=== PATIENT | male | born 1955 | race Caucasian/White ===

== ENCOUNTER 2017-02-19 14:37 | Emergency (ER) | payer OTHER ==
[2017-02-19] MEDS ORDERED: RX INFO: IV CONTRAST WAS GIVEN 1 EACH MISC MISCELLANE PRN (15:00)
--- NOTE | 2017-02-19 15:02 | ED ---
General Adult HPI - General Chief complaint: Fall Stated complaint: [facility]/fall/Back Pain Time Seen by Provider: 02/19/17 14:50 Source: patient, RN notes reviewed Mode of arrival: ambulatory Limitations: no limitations - History of Present Illness Initial comments: 61-year-old male presenting after fall at work. Patient states he was standing on a stool in front of a machine when he lost balance and fell backwards. He states he fell backwards falling onto his right lower back as well as hitting his right elbow. He does not believe that he hit his head or neck. He did not lose consciousness. He is not any blood thinner medications. He states since this time he has developed right lower back pain that is worsening. He also states right elbow hurts. He denies any other injury. He denies any significant medical history. - Related Data Home Medications Medication Instructions Recorded Confirmed Clotrimazole/Betameth Cream 1 applic TOPICAL DAILY PRN 02/19/17 02/19/17 [Lotrisone] Ibuprofen [Motrin] 800 mg PO DAILY PRN 02/19/17 02/19/17 Previous Rx's Medication Instructions Recorded HYDROcodone/APAP 5-325MG [Belding 1 tab PO Q6HR PRN #12 tab 02/19/17 5-325] Ibuprofen [Motrin] 800 mg PO Q8HR PRN #21 tab 02/19/17 Allergies Allergy/AdvReac Type Severity Reaction Status Date / Time bacitracin AdvReac Unknown Verified 02/19/17 16:00 [From Neosporin ([id number])] neomycin AdvReac Unknown Verified 02/19/17 16:00 [From Neosporin ([id number])] polymyxin B AdvReac Unknown Verified 02/19/17 16:00 [From Neosporin ([id number])] Review of Systems ROS Statement: Those systems with pertinent positive or pertinent negative responses have been documented in the HPI. ROS Other: All systems not noted in ROS Statement are negative. Past Medical History Past Medical History: No Reported History History of Any Multi-Drug Resistant Organisms: None Reported Additional Past Surgical History / Comment(s): left hand surgery Past Psychological History: No Psychological Hx Reported Smoking Status: Never smoker Past Alcohol Use History: Occasional Past Drug Use History: None Reported General Exam - General Exam Comments Initial Comments: General: Awake and Alert. No acute distress. Does not appear acutely ill. Eyes: STEVE, EOM intact. No nystagmus. No scleral icterus. HENT: Atraumatic, normocephalic. Mucous membranes moist. Trachea midline. No hemotympanum. Neck: The neck is supple, there is no tenderness or JVD. Cardiovascular: Regular rate and rhythm. No murmur, rub, or gallop is appreciated. Distal pulses intact. Respiratory: Lungs are clear to auscultation bilaterally. No wheezes, rales, rhonchi. No respiratory distress. Gastrointestinal: Soft, Nontender. No rebound or guarding. Non-distended. No masses or organomegaly noted. No CVA tenderness. Musculoskeletal: Right lower back tenderness. There is significant ecchymosis of the right lower back, with a swollen area which feels like an underlying hematoma. No midline spinal tenderness or deformity. Mild tenderness over medial elbow. Neurological: A&Ox3. CN II-XII grossly intact, There are no obvious motor or sensory deficits. Coordination appears grossly intact. Speech is normal. Skin: Skin is warm and dry and no rashes or lesions are noted. Psychiatric: Cooperative, appropriate mood & affect, normal judgment. Limitations: no limitations Course Vital Signs 02/19/17 02/19/17 02/19/17 14:41 15:48 17:10 Temperature 97.5 F L 98.2 F Pulse Rate 75 71 65 Respiratory 18 16 18 Rate Blood Pressure 123/82 131/63 128/67 O2 Sat by Pulse 97 98 98 Oximetry Medical Decision Making - Medical Decision Making 61-year-old male presenting after fall at work. He does have evidence of ecchymosis and hematoma on the right lower back. Due to this basic blood work and CT imaging were performed. CT abdomen/pelvis without evidence of acute process. He does have noted chronic spondylitic changes at L5-S1. Elbow x-ray is without fracture. Labs with stable CBC with mild leukocytosis, likely reactive. BMP stable. Pt updated on imaging. Discussed spondylitic changes and follow up for this. Work note provided, discussed further time off per [facility] or PCP reevaluation. Otherwise stable for discharge home. Rx for pain medication provided. Discussed concerning signs/symptoms for immediate return to the ED. Patient is agreeable with plan and discharge home. - Lab Data Result diagrams: 04/07/17 15:15 02/19/17 15:15 Lab Results 02/19/17 02/19/17 Range/Units 15:15 15:15 WBC 11.6 H (3.8-10.6) k/uL RBC 4.94 (4.30-5.90) m/uL Hgb 15.9 (13.0-17.5) gm/dL Hct 46.5 (39.0-53.0) % MCV 94.0 (80.0-100.0) fL MCH 32.2 (25.0-35.0) pg MCHC 34.2 (31.0-37.0) g/dL RDW 12.7 (11.5-15.5) % Plt Count 248 (150-450) k/uL Neutrophils % 72 % Lymphocytes % 20 % Monocytes % 5 % Eosinophils % 1 % Basophils % 1 % Neutrophils # 8.3 H (1.3-7.7) k/uL Lymphocytes # 2.4 (1.0-4.8) k/uL Monocytes # 0.6 (0-1.0) k/uL Eosinophils # 0.1 (0-0.7) k/uL Basophils # 0.1 (0-0.2) k/uL Sodium 139 (137-145) mmol/L Potassium 4.6 (3.5-5.1) mmol/L Chloride 105 (98-107) mmol/L Carbon Dioxide 24 (22-30) mmol/L Anion Gap 10 mmol/L BUN 17 (9-20) mg/dL Creatinine 1.03 (0.66-1.25) mg/dL Est GFR (MDRD) Af Amer >60 (>60 ml/min/1.73 sqM) Est GFR (MDRD) Non-Af >60 (>60 ml/min/1.73 sqM) Glucose 87 (74-99) mg/dL Calcium 9.3 (8.4-10.2) mg/dL - Radiology Data Radiology results: report reviewed, image reviewed Disposition Clinical Impression: Fall, Right low back pain, Traumatic hematoma of lower back Disposition: HOME SELF-CARE Condition: Stable Instructions: Low Back Strain (ED), Hematoma (ED) Prescriptions: HYDROcodone/APAP 5-325MG [Belding 5-325] 1 tab PO Q6HR PRN #12 tab PRN Reason: Pain Ibuprofen [Motrin] 800 mg PO Q8HR PRN #21 tab PRN Reason: Pain Referrals: Linn Altman MD [Primary Care Provider] - 1-2 days Time of Disposition: 16:45
[2017-02-19 15:22] LABS: Basophils # (A) 0.1 k/uL (0-0.2); Basophils % (A) 1 %; CH 31.9; CHCM 34.1; Eosinophils # (A) 0.1 k/uL (0-0.7); Eosinophils % (A) 1 %; HCT 46.5 % (39.0-53.0); HDW 2.33; HGB 15.9 gm/dL (13.0-17.5); Luc # (Auto) 0.22; Luc % (Auto) 2; Lymphocytes # (A) 2.4 k/uL (1.0-4.8); Lymphocytes % (A) 20 %; MCH 32.2 pg (25.0-35.0); MCHC 34.2 g/dL (31.0-37.0); Mean Platelet Volume 6.8; Monocytes # (A) 0.6 k/uL (0-1.0); Monocytes % (A) 5 %; Neutrophils # (A) 8.3 k/uL (1.3-7.7); Neutrophils % (A) 72 %; RBC 4.94 m/uL (4.30-5.90); RDW 12.7 % (11.5-15.5); WBC 11.6 k/uL (3.8-10.6); WBC (Perox) 11.61
[2017-02-19 15:45] LABS: Anion Gap 10 mmol/L; Blood Urea Nitrogen 17 mg/dL (9-20); Calcium 9.3 mg/dL (8.4-10.2); Carbon Dioxide 24 mmol/L (22-30); Chloride 105 mmol/L (98-107); Glucose 87 mg/dL (74-99); Non-African American GFR(MDRD) >60 (>60 ml/min/1.73 sqM); Potassium 4.6 mmol/L (3.5-5.1); Sodium 139 mmol/L (137-145)
--- NOTE | 2017-02-19 15:50 | CT ---
EXAMINATION TYPE: CT abdomen pelvis w con DATE OF EXAM: 02/19/2017 3:43 PM COMPARISON: NONE HISTORY: Patient fell today and complains of right lower back pain. Patient denies any other abdomin al/pelvic complaint. CT DLP: 567 mGycm, Automated Exposure Control for Dose Reduction was Utilized. CONTRAST: CT scan of the abdomen and pelvis is performed without oral but with IV Contrast, patient injected wi th 100 mL of Omnipaque 300. FINDINGS: LUNG BASES: No significant abnormality is appreciated. LIVER/GB: No significant abnormality is appreciated. PANCREAS: No significant abnormality is seen. SPLEEN: No significant abnormality is seen. ADRENALS: No significant abnormality is seen. KIDNEYS: No significant abnormality is seen. BOWEL: Evaluation of bowel is suboptimal due to lack of enteric contrast. There is no suspicious smal l or large bowel dilatation seen. Normal-appearing appendix is seen inferiorly from the cecum. There are some diverticula seen in the proximal sigmoid colon. There is no convincing CT evidence for acute diverticulitis. PROSTATE/SEMINAL VESICLES: Some central zone calcifications are seen in normal size prostate gland. L YMPH NODES: No greater than 1cm abdominal or pelvic lymph nodes are appreciated. OSSEOUS STRUCTURES: There are bilateral pars defects L5 level. There is grade 1 anterolisthesis of L5 on S1 measuring 8 mm on sagittal images. There is moderate to advanced disc space narrowing with vac uum disc phenomenon at lumbosacral junction. OTHER: Few scattered pelvic phleboliths are present. There is small fat-containing right inguinal her sujit. IMPRESSION: Bilateral pars defects L5 level with grade 1 anterolisthesis of L5 on S1 and degenerative change lumbosacral junction noted. All findings presumed chronic. No acute posttraumatic finding is clearly seen.
--- NOTE | 2017-02-19 16:21 | XR ---
EXAMINATION TYPE: XR elbow complete RT DATE OF EXAM: 02/19/2017 4:14 PM CLINICAL HISTORY: Posterior right elbow pain after fall injury today. TECHNIQUE: Frontal, lateral and oblique images of the right elbow are obtained. COMPARISON: None FINDINGS: There is no acute fracture/dislocation evident in the right elbow. No abnormal fat pad si gns are seen. The overlying soft tissue appears unremarkable. IMPRESSION: There is no acute fracture or dislocation in the right elbow.
[2017-02-19 17:11] VITALS: BP 128/67; PULSE 65; RESP 18; TEMP 98.2
== END 2017-02-19 17:11 | disposition home or self-care (01) ==
LOC: EC 14:37
DX: S30.0XXA Contusion of lower back and pelvis, initial encounter (principal); M25.521 Pain in right elbow; M47.817 Spondylosis without myelopathy or radiculopathy, lumbosacral region; Z88.1 Allergy status to other antibiotic agents; W08.XXXA Fall from other furniture, initial encounter; Y99.0 Civilian activity done for income or pay; Y92.69 Other specified industrial and construction area as the place of occurrence of the external cause; D72.829 Elevated white blood cell count, unspecified
CPT/HCPCS: 99284 ×2; 36415; 80048; 85025; 73080; 74177; Q9967

== ENCOUNTER 2017-03-04 04:01 | Emergency (ER) | payer OTHER ==
[2017-03-04 04:12] VITALS: BP 127/90; PULSE 76; RESP 16; TEMP 98.1
--- NOTE | 2017-03-04 04:40 | ED ---
Back Pain HPI - General Chief Complaint: Back Pain/Injury Stated Complaint: [facility] follow up-back/arm pain Time Seen by Provider: 03/04/17 04:34 Source: patient, RN notes reviewed, old records reviewed Limitations: no limitations - History of Present Illness Initial Comments: Is a 61-year-old male who is here for evaluation for back pain. He was apparently injured on the of this month from a fall he was seen here in the emergency Department on that date he did have x-rays as well as a CAT scan the abdomen pelvis done. X-rays available was unremarkable CT showed evidence of a bilateral pars defect of the L5 level with grade 1 anterolisthesis of L5 on S1 and degenerative changes lumbosacral junction noted a period be chronic changes not acute. He denies any fevers chills nausea vomiting sweats dysuria hematuria and urinary or fecal incontinence. 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 [facility] was [facility] where he was evaluated for low back pain he was seen in the of this month and told that he should be able to resume full duty. He is also concerned because he has difficulty with sleeping on his back and hurts and is not getting enough sleep states. He also did have a letter from his employer saying he could not see his own personal physician for this injury but had to go to the medical provider chosen by his company. The patient states he was on Motrin 800 mg also was Farnam. He states he's run out of his medication. Complaint: back injury, fall - Related Data Home Medications Medication Instructions Recorded Confirmed Clotrimazole/Betameth Cream 1 applic TOPICAL DAILY PRN 02/19/17 02/19/17 [Lotrisone] Ibuprofen [Motrin] 800 mg PO DAILY PRN 02/19/17 02/19/17 Previous Rx's Medication Instructions Recorded HYDROcodone/APAP 5-325MG [[place]arnam 1 tab PO Q6HR PRN #12 tab 02/19/17 5-325] Ibuprofen [Motrin] 800 mg PO Q8HR PRN #21 tab 02/19/17 Ibuprofen [Motrin] 800 mg PO Q6HR PRN #20 tab 04/20/17 Allergies Allergy/AdvReac Type Severity Reaction Status Date / Time bacitracin AdvReac Unknown Verified 02/19/17 16:00 [From Neosporin ([id number])] neomycin AdvReac Unknown Verified 02/19/17 16:00 [From Neosporin ([id number])] polymyxin B AdvReac Unknown Verified 02/19/17 16:00 [From Neosporin ([id number])] Review of Systems ROS Statement: Those systems with pertinent positive or pertinent negative responses have been documented in the HPI. ROS Other: All systems not noted in ROS Statement are negative. Past Medical History Past Medical History: No Reported History History of Any Multi-Drug Resistant Organisms: None Reported Additional Past Surgical History / Comment(s): left hand surgery Past Psychological History: Anxiety Smoking Status: Never smoker Past Alcohol Use History: Occasional Past Drug Use History: None Reported General Exam - General Exam Comments Initial Comments: This is a well-developed well-nourished awake alert oriented x3 male Limitations: no limitations General appearance: alert, in no apparent distress Head exam: Present: atraumatic, normocephalic, normal inspection Eye exam: Present: normal appearance, PERRL, EOMI. Absent: scleral icterus, conjunctival injection, periorbital swelling Neck exam: Present: normal inspection. Absent: tenderness, meningismus, lymphadenopathy Respiratory exam: Present: normal lung sounds bilaterally. Absent: respiratory distress, wheezes, rales, rhonchi, stridor Cardiovascular Exam: Present: regular rate, normal rhythm, normal heart sounds. Absent: systolic murmur, diastolic murmur, rubs, gallop, clicks Extremities exam: Present: normal inspection, full ROM, normal capillary refill. Absent: tenderness, pedal edema, joint swelling, calf tenderness Back exam: Present: tenderness, paraspinal tenderness (Tenderness with some paraspinous tenderness palpation to the right paraspinous muscles to lower lumbar and SI joint region there is resolving ecchymosis seen over the sacrum and the left SI region. There is tenderness palpation with no step-off or crepitation. There is some sciatic tenderness. No focal deficits noted) Neurological exam: Present: alert, oriented X3, CN II-XII intact Psychiatric exam: Present: normal affect, normal mood Skin exam: Present: warm, dry, intact, other (Ecchymosis is noted above). Absent: normal color Course Vital Signs 03/04/17 04:09 Temperature 98.1 F Pulse Rate 76 Respiratory 16 Rate Blood Pressure 127/90 O2 Sat by Pulse 96 Oximetry Medical Decision Making - Medical Decision Making After review the records and also examination the patient and believe a another week of light duty is indicated. Patient will be instructed to resume Motrin 800 mg. Warm compresses to the area and lifting restrictions Disposition Clinical Impression: Mechanical back pain, Strain of lumbar region, Lumbar contusion Disposition: HOME SELF-CARE Condition: Good Instructions: Acute Low Back Pain (ED), Low Back Strain (ED), Lower Back Exercises (ED), Contusion in Adults (ED) Additional Instructions: Apply warm compresses as needed to the affected area Prescriptions: Ibuprofen [Motrin] 800 mg PO Q6HR PRN #20 tab PRN Reason: Pain
== END 2017-03-04 04:53 | disposition home or self-care (01) ==
LOC: EC 04:01
DX: S39.012A Strain of muscle, fascia and tendon of lower back, initial encounter (principal); Z88.1 Allergy status to other antibiotic agents; X50.0XXA Overexertion from strenuous movement or load, initial encounter; Y92.69 Other specified industrial and construction area as the place of occurrence of the external cause; Y99.0 Civilian activity done for income or pay
CPT/HCPCS: 99283

== ENCOUNTER → 2020-12-19 | Outpatient (CLI) | payer OTHER ==
[2020-12-19 19:28] LABS: Basophils % (A) 1.1 %; Eosinophils # (A) 0.28 X 10*3/uL (0.04-0.35); Eosinophils % (A) 3.2 %; HCT 46.2 % (39.6-50.0); HGB 15.2 g/dL (13.0-17.0); Lymphocytes # (A) 2.93 X 10*3/uL (0.90-5.00); Lymphocytes % (A) 33.6 %; MCH 31.2 pg (27.0-32.0); MCHC 32.9 g/dL (32.0-37.0); MCV 94.9 fL (80.0-97.0); Mean Platelet Volume 10.5 fL (9.5-12.2); Monocytes # (A) 0.98 X 10*3/uL (0.20-1.00); Monocytes % (A) 11.2 %; Neutrophils # (A) 4.42 X 10*3/uL (1.80-7.70); Neutrophils % (A) 50.7 %; Platelet Count 287 X 10*3/uL (140-440); RBC 4.87 X 10*6/uL (4.40-5.60); RDW 13.1 % (11.5-14.5); WBC 8.73 X 10*3/uL (4.50-10.00)
[2020-12-19 20:36] LABS: Erythrocyte Sedimentation Rate 14 mm/Hr (0-20)
[2020-12-19 21:57] LABS: Anti-Smith Ab Interp NEGATIVE (NEGATIVE)
[2020-12-19 23:40] LABS: African American GFR (CKD) 67.3 (60.0-200.0); Albumin 4.1 g/dL (3.80-4.90); Albumin/Globulin Ratio 1.52 (1.60-3.17); Anion Gap 8.8 mmol/L (4.00-12.00); BUN/Creat Ratio 17.69 Ratio (12.00-20.00); Calcium 8.7 mg/dL (8.7-10.3); Carbon Dioxide 25.2 mmol/L (21.6-31.8); Globulin 2.7 g/dL (1.6-3.3); Non-African American GFR(CKD) 58.1 (60.0-200.0); Potassium 4.5 mmol/L (3.5-5.5); Total Bilirubin 0.4 mg/dL (0.3-1.2); Total Protein 6.8 g/dL (6.2-8.2)
[2020-12-20 16:06] LABS: ANA Pattern Speckled
== END | disposition home or self-care (01) ==
LOC: LABWHC1 14:16
PROVIDERS: ATTEND Internal Medicine Critical Care Medicine
DX: J84.112 Idiopathic pulmonary fibrosis (principal); R05 Cough
CPT/HCPCS: 36415; 80053; 85025; 85652; 86038; 86039; 86235; 86431

== ENCOUNTER → 2021-01-01 | Outpatient (CLI) | payer OTHER ==
--- NOTE | 2021-01-01 21:53 | CT ---
EXAMINATION TYPE: CT chest wo con DATE OF EXAM: 01/01/2021 COMPARISON: CT abdomen pelvis 02/19/2017 HISTORY: Cough x [address] DLP: 295.6 mGycm, Automated exposure control for dose reduction was used. CONTRAST: None TECHNIQUE: Axial images were obtained at 5 mm thick sections. Reconstructed images are reviewed on [employer] computer in the coronal plane. FINDINGS: Portion of the thyroid visualized is normal. There are a few scattered peripheral infiltrates greater along the right peripheral lower lobe. Findi ngs are nonspecific. Discrete nodules are not identified. Finding is an interval finding from the vis ualized lung base in 2017. There is a 1.3 cm enlarged right peribronchial lymph node. Series 3 image 27. No suspicious hilar maximilian nopathy is evident. There are scattered small lymph nodes within the mediastinum. The ascending aorta diameter at the level of the main pulmonary artery is 2.9 cm. The main pulmonary artery diameter at the bifurcation is 2.[address] sections are obtained through the upper abdomen. Abdomen is essentially unremarkable. IMPRESSIONS: 1. Peripheral based infiltrates greater at the right mid and lower lung salcido, nonspecific. Small ri ght pleural effusion is present. 2. Enlarged pretracheal lymph node with additional shotty lymphadenopathy.
== END | disposition home or self-care (01) ==
LOC: RADCTMAIN 13:01
PROVIDERS: ATTEND Internal Medicine Critical Care Medicine
DX: R91.8 Other nonspecific abnormal finding of lung field (principal); J90 Pleural effusion, not elsewhere classified; R59.1 Generalized enlarged lymph nodes
CPT/HCPCS: 71250

== ENCOUNTER → 2021-02-10 | Outpatient (CLI) | payer OTHER | END | disposition home or self-care (01) | LOC: LABWHC1 13:06 | PROVIDERS: ATTEND Thoracic Surgery (Cardiothoracic Vascular Surgery) | DX: Z20.822 Contact with and (suspected) exposure to COVID-19 (principal); Z86.16 Personal history of COVID-19 | CPT/HCPCS: U0003; C9803; U0005 ==

== ENCOUNTER → 2021-02-10 | Outpatient (CLI) | payer OTHER ==
[2021-02-10 11:56] LABS: Basophils # (A) 0.1 k/uL (0-0.2); Basophils % (A) 1 %; Eosinophils # (A) 0.2 k/uL (0-0.7); Eosinophils % (A) 2 %; HCT 48.7 % (39.0-53.0); HGB 16.4 gm/dL (13.0-17.5); Lymphocytes # (A) 2.7 k/uL (1.0-4.8); Lymphocytes % (A) 29 %; MCH 31.5 pg (25.0-35.0); MCHC 33.7 g/dL (31.0-37.0); MCV 93.3 fL (80.0-100.0); Mean Platelet Volume 6.9; Monocytes # (A) 0.7 k/uL (0-1.0); Monocytes % (A) 8 %; Neutrophils # (A) 5.3 k/uL (1.3-7.7); Neutrophils % (A) 57 %; Platelet Count 314 k/uL (150-450); RBC 5.22 m/uL (4.30-5.90); RDW 12.9 % (11.5-15.5); WBC 9.3 k/uL (3.8-10.6)
[2021-02-10 12:08] LABS: Partial Thromboplastin Time 24.5 sec (22.0-30.0); Prothrombin Time 10.6 sec (9.0-12.0)
[2021-02-10 12:13] LABS: African American GFR (CKD) >90 (>60 ml/min/1.73 sqM); Anion Gap 5 mmol/L; Blood Urea Nitrogen 16 mg/dL (9-20); Carbon Dioxide 29 mmol/L (22-30); Chloride 104 mmol/L (98-107); Glucose 96 mg/dL (74-99); Non-African American GFR(CKD) 86 (>60 ml/min/1.73 sqM); Potassium 4.9 mmol/L (3.5-5.1); Sodium 138 mmol/L (137-145)
== END | disposition home or self-care (01) ==
LOC: LABPAT 10:37
PROVIDERS: ATTEND Thoracic Surgery (Cardiothoracic Vascular Surgery)
DX: Z01.812 Encounter for preprocedural laboratory examination (principal); J84.9 Interstitial pulmonary disease, unspecified
CPT/HCPCS: 80051; 82565; 82947; 84520; 85025; 85610; 85730; 93005

== ENCOUNTER 2021-02-13 07:30 | Inpatient (IN) | payer OTHER ==
[2021-02-13 11:14] VITALS: BMI 24.4
[2021-02-20] MEDS ORDERED: HYDROmorphone 0.5 MG/0.5 ML SYRINGE IVP PRN (05:53)
[2021-02-20] MEDS ORDERED: MIDAZOLAM 2 MG/2 ML VIAL IV PRN (05:53)
[2021-02-20] MEDS ORDERED: LACTATED RINGERS 1,000 ML IV SCH (05:53)
[2021-02-20] MEDS ORDERED: DEXAMETHASONE SOD PHOSPHATE 4 MG/ML 1 ML VIAL IV ONE (05:53)
[2021-02-20] MEDS ORDERED: LIDOCAINE 1% (10MG/ML) FOR IV START INTRADERMA ONE (06:25)
[2021-02-20] MEDS ORDERED: ONDANSETRON 4 MG/2 ML VIAL ONE (06:48)
[2021-02-20] MEDS ORDERED: ROCURONIUM 10 MG/ML (5 ML VIAL) IV ONE (07:40)
[2021-02-20] MEDS ORDERED: PROPOFOL 10 MG/ML 20 ML VIAL IV ONE (07:40)
[2021-02-20] MEDS ORDERED: SUCCINYLCHOLINE CHLORIDE 100 MG/5 ML SYR IV ONE (07:40)
[2021-02-20] MEDS ORDERED: fentaNYL (PF) 50 MCG/ML 2 ML AMP ONE (07:40)
[2021-02-20] MEDS ORDERED: NEOSTIGMINE 1 MG/ML 10 ML VIAL ONE (07:40)
[2021-02-20] MEDS ORDERED: LIDOCAINE 1% INJ 10MG/ML (20 ML MDV) ONE (07:40)
[2021-02-20] MEDS ORDERED: ROPIVACAINE 5 MG/ML 30 ML VIAL ONE (07:40)
[2021-02-20] MEDS ORDERED: GLYCOPYRROLATE 0.2 MG/ML 2 ML VIAL ONE (07:40)
[2021-02-20] MEDS ORDERED: BUPIVACAINE (PF) 0.5% 30 ML VIAL SQ ONE ×3 (08:06→08:27)
--- NOTE | 2021-02-20 09:01 | P.OP ---
Date of Procedure: 02/20/21 Preoperative Diagnosis: Bilateral pulmonary interstitial infiltrates Postoperative Diagnosis: Same Procedure(s) Performed: Right thoracoscopic lung biopsy Anesthesia: GETA Surgeon: Da Alexis Estimated Blood Loss (ml): 20 IV fluids (ml): 500 Urine output (ml): 0 Pathology: other (Biopsies of right lower lobe, right upper lobe, pleura were all sent for pathology, cultures including aerobic and anaerobic AFB and fungus) Indications for Procedure: 65-year-old male with progressive dyspnea on exertion and cough. CT demonstrated bilateral interstitial disease worse on the right than the left with some trapping of the right lung. Operative Findings: There was diffuse pleural thickening and inflammatory change in the pleural space with fairly marketed somewhat persistent adhesions. These thankfully fairly easily with blunt dissection. Compliance of the pulmonary parenchyma was poor in the lung tissue was dense and boggy. Description of Procedure: The patient was brought to the operating room, placed supine on the operating room table, anesthetized and intubated with a double-lumen endotracheal tube. Tube was positioned with fiberoptic bronchoscopy and secured. Patient was turned into the left lateral decubitus position and the right chest sterilely prepped and draped. 3 one-inch incisions were made in the right chest video thoracoscope was introduced through the lowest of these. Adhesions were noted these were locally mobilized with a finger. Once a second incision had been made we were able to take down the adhesions fairly easily with one dissection using a ring forceps. Biopsies of the upper and lower lobe were obtained using multiple firings of Endo JUAN stapler. Biopsies of the pleura were also obtained. Both of the specimens were split on the back table and a portion sent for culture and the remainder for pathology. 28-Greek chest tube was placed through separate stab incision and positioned posterior apically. The lung was inflated under thoracoscopic visualization and thoracoscope removed. Incisions were closed with layers of Vicryl suture. Rib blocks were performed at the level of the incisions with half percent Marcaine posteriorly. Dry sterile dressings were applied and the patient was extubated and transferred to recovery in stable condition.
[2021-02-20] MEDS: MEPERIDINE 50 MG/ML SYRINGE IVP ONE ×2 (09:07→09:19)
[2021-02-20] MEDS ORDERED: CLOTRIMAZOLE/BETAMETH 1-0.05% CREAM 45 GM TUBE TOPICAL PRN (09:33)
[2021-02-20] MEDS ORDERED: LACTATED RINGERS 1,000 ML IV ONE (10:00)
--- NOTE | 2021-02-20 10:21 | XR ---
EXAMINATION TYPE: XR chest 1V portable DATE OF EXAM: 02/20/2021 Comparison: 12/19/2019 and 01/01/2021 Clinical History: 65-year-old male status post lung biopsy. Findings: Patient is slightly rotated towards the right. This may account for the right paratracheal soft tissu e prominence. Heart normal size. Patchy peripheral right basilar opacity is similar. Some additional fine interstitial changes in the lower lungs. Staple line right upper to midlung compatible with inte rval wedge resection. An apically directed right-sided chest tube is present. No appreciable pneumoth orax. Impression: 1. Interval wedge resection right upper to midlung with staple line now present. Right-sided chest tu be in place. No appreciable pneumothorax. 2. New right paratracheal soft tissue thickening may be projectional from slight patient rotation. Fo llow-up high-quality PA view to ensure the right paratracheal stripe is normal. 3. Chronic right basilar pleural thickening and bilateral lower lung fine interstitial changes. Possi ble interstitial pneumonitis such as NSIP.
[2021-02-20] MEDS ORDERED: KETOROLAC 15 MG/ML 1 ML VIAL IVP ONE (10:36)
[2021-02-20] MEDS ORDERED: IPRATROPIUM-ALBUTEROL 3 ML NEB IH PRN (16:43)
[2021-02-20] MEDS ORDERED: DEXTROSE 5%-0.45% NACL 1,000 ML IV SCH (16:43)
[2021-02-20] MEDS ORDERED: ONDANSETRON 4 MG/2 ML VIAL IVP PRN (16:43)
[2021-02-20] MEDS ORDERED: ACETAMINOPHEN TAB 325 MG TAB PO PRN (16:43)
[2021-02-20] MEDS: traMADol 50 MG TAB PO SCH ×2 (17:26→22:57)
[2021-02-20] MEDS: HEPARIN SODIUM,PORCINE/PF 5,000 UNIT/0.5 ML SYRINGE SQ SCH ×2 (17:27→22:56)
[2021-02-20] MEDS: KETOROLAC 15 MG/ML 1 ML VIAL IVP SCH ×2 (17:27→22:56)
[2021-02-20] MEDS: IPRATROPIUM-ALBUTEROL 3 ML NEB IH SCH ×2 (17:31→19:48)
[2021-02-20 20:27] VITALS: RESP 16
--- NOTE | 2021-02-20 20:32 | P.ANPRN ---
Procedure Note - Anesthesia - Nerve Block Performed Right Erector Spinae Single Time Out Performed: Yes Date of Procedure: 02/20/21 Procedure Start Time: :07 Procedure Stop Time: 07:11 Location of Patient: PreOp Indication: Acute Post-Operative Pain, Requested by Surgeon Sedation Type: Sedate with meaningful contact maintained Preparation: Sterile Prep Position: Prone Needle Types: Pajunk Needle Gauge: 21 Ultrasound used to visualize needle placement: Yes Ultrasound used to observe medication spread: Yes Blood Aspirated: No Pain Paresthesia on Injection Noted: No Resistance on Injection: Normal Image Stored and Saved: Yes Events: Uneventful and Well Tolerated (ropi .5% 15 cc plus xylo 1% 15cc at t4)
[2021-02-21] MEDS: traMADol 50 MG TAB PO SCH ×2 (06:07→06:08)
[2021-02-21] MEDS: KETOROLAC 15 MG/ML 1 ML VIAL IVP SCH (06:09)
[2021-02-21 06:57] LABS: Basophils # (A) 0.1 k/uL (0-0.2); Basophils % (A) 1 %; Eosinophils # (A) 0.2 k/uL (0-0.7); Eosinophils % (A) 2 %; HGB 14.2 gm/dL (13.0-17.5); Lymphocytes # (A) 2.4 k/uL (1.0-4.8); Lymphocytes % (A) 27 %; MCH 31.4 pg (25.0-35.0); MCHC 33.8 g/dL (31.0-37.0); MCV 93.1 fL (80.0-100.0); Mean Platelet Volume 7.1; Monocytes # (A) 0.8 k/uL (0-1.0); Monocytes % (A) 9 %; Neutrophils # (A) 5.2 k/uL (1.3-7.7); Neutrophils % (A) 59 %; Platelet Count 242 k/uL (150-450); RBC 4.52 m/uL (4.30-5.90); RDW 12.8 % (11.5-15.5); WBC 8.9 k/uL (3.8-10.6)
[2021-02-21 07:11] LABS: Calcium 8.2 mg/dL (8.4-10.2); Potassium 4.5 mmol/L (3.5-5.1)
[2021-02-21] MEDS ORDERED: PANTOPRAZOLE 40 MG TABLET PO SCH (07:30)
[2021-02-21] MEDS: IPRATROPIUM-ALBUTEROL 3 ML NEB IH SCH ×2 (08:03→11:21)
[2021-02-21] MEDS: HEPARIN SODIUM,PORCINE/PF 5,000 UNIT/0.5 ML SYRINGE SQ SCH (08:10)
--- NOTE | 2021-02-21 08:52 | XR ---
EXAMINATION TYPE: XR chest 1V DATE OF EXAM: 02/21/2021 COMPARISON: 02/20/2021 INDICATION: Post VATS TECHNIQUE: Single frontal view of the chest is obtained. FINDINGS: The heart size is normal. The pulmonary vasculature is normal. There is a small right pleural fluid collection. Right-sided chest tube is present. Small right apica l pneumothorax is present. IMPRESSION: 1. Small right apical pneumothorax. 2. Small right pleural collection, increasing from comparison.
[2021-02-21] MEDS ORDERED: CHOLECALCIFEROL 25 MCG (1000 IU) TABLET PO SCH (09:00)
[2021-02-21] MEDS ORDERED: ASCORBIC ACID 500 MG TAB PO SCH (09:00)
[2021-02-21] MEDS ORDERED: traMADol 50 MG TAB PO PRN (10:21)
[2021-02-21] MEDS ORDERED: KETOROLAC 15 MG/ML 1 ML VIAL IVP PRN (10:21)
--- NOTE | 2021-02-21 10:28 | P.PN ---
Subjective Progress Note Date: 02/21/21 Principal diagnosis: Bilateral pulmonary interstitial infiltrates POD #1 right thoracoscopic lung biopsy The patient is currently sitting up in a recliner on the cardiac stepdown unit in no acute distress. States pain is well-controlled on current medication regimen, denies shortness of breath. Right pleural chest tube present to waterseal with minimal serosanguineous drainage. He is oxygenating well on room air, actively using incentive spirometry. He has been up ambulating without difficulty. No other new concerns. Objective - Vital Signs Vital signs: Vital Signs Temp 97.4 F L 02/21/21 08:00 Pulse 86 02/21/21 08:00 Resp 16 02/21/21 08:00 BP 93/63 02/21/21 08:00 Pulse Ox 92 L 02/21/21 08:00 Intake & Output 02/20/21 02/21/21 02/21/21 18:59 06:59 18:59 Intake Total 1810 330 240 Output Total 20 196 Balance 1790 134 240 Weight 84.5 kg Intake: IV 1550 Intake, IV Titration 20 330 Amount Dextrose 5%-0.45% NaCl 1, 280 000 ml @ 40 mls/hr IV . Q24H [facility] Rx#:[id number] Lactated Ringers 1,000 ml 20 @ 0 mls/hr IV .[facility] Rx#:[id number] ceFAZolin 2 gm In Sodium 50 Chloride 0.9% 50 ml @ 100 mls/hr IVPB Q8H [facility] Rx#: [id number] Oral 240 240 Output: Chest Tube Drainage 196 Chest Tube Right Lateral 196 Chest Estimated Blood Loss 20 Other: # Voids 1 - Exam CONSTITUTIONAL: Appears comfortable, cooperative, no acute distress RESPIRATORY: Lungs sounds diminished bilaterally. Respirations even, nonlabored. Currently on room air with oxygen saturation 96%. Able to achieve 1250 mL on incentive spirometry. Strong cough. CARDIOVASCULAR: S1, S2 present. Regular rate and rhythm, sinus rhythm on telemetry. Palpable peripheral pulses bilaterally. No edema present. No calf pain or tenderness noted. SCDs present. GASTROINTESTINAL: Abdomen soft, nontender, nondistended. Active bowel sounds present 4 quadrants. Tolerating diet. GENITOURINARY: Continues to void clear, yellow urine INTEGUMENTARY: Skin is warm and dry with evidence of good perfusion. Thoracic incisions well approximated without redness or drainage NEUROLOGIC: Cranial nerves II through XII intact MUSKULOSKELETAL: Able to move all extremities, strength equal bilaterally, gait normal PSYCHIATRIC: Alert and oriented to person place and time, appropriate affect, intact judgment and insight INVASIVE LINES AND TUBES: Right pleural chest tubes present to waterseal, no air leaks present. Right pleural chest tube with 38 mL serosanguineous drainage overnight, 200 mL last 24 hours. - Allied health notes Allied health notes reviewed: nursing - Labs CBC & Chem 7: 02/21/21 06:26 02/21/21 06:26 Labs: Abnormal Lab Results - Last 24 Hours (Table) 02/21/21 Range/Units 06:26 Sodium 135 L (137-145) mmol/L Carbon Dioxide 31 H (22-30) mmol/L Calcium 8.2 L (8.4-10.2) mg/dL Microbiology - Last 24 Hours (Table) 02/20/21 08:39 Gram Stain - Preliminary Lung - Right Tissue Culture - Preliminary 02/20/21 08:39 Acid Fast Bacilli Smear - Final Lung - Right Acid Fast Bacilli Culture - Preliminary 02/20/21 08:39 Acid Fast Bacilli Smear - Final Lung - Right Lower Lobe Acid Fast Bacilli Culture - Preliminary 02/20/21 08:39 Acid Fast Bacilli Smear - Final Lung - Right Upper Lobe Acid Fast Bacilli Culture - Preliminary 02/20/21 08:39 Gram Stain - Preliminary Lung - Right Upper Lobe Tissue Culture - Preliminary 02/20/21 08:39 Gram Stain - Preliminary Lung - Right Lower Lobe Tissue Culture - Preliminary 02/20/21 08:39 Anaerobic Culture - Preliminary Lung - Right Upper Lobe 02/20/21 08:39 Fungal Culture - Preliminary Lung - Right Upper Lobe 02/20/21 08:39 Anaerobic Culture - Preliminary Lung - Right Lower Lobe 02/20/21 08:39 Fungal Culture - Preliminary Lung - Right Lower Lobe 02/20/21 08:39 Anaerobic Culture - Preliminary Lung - Right 02/20/21 08:39 Fungal Culture - Preliminary Lung - Right - Imaging and Cardiology Chest x-ray: report reviewed, image reviewed Assessment and Plan Assessment: Bilateral pulmonary interstitial infiltrates, status post right thoracoscopic lung biopsy Plan: The patient is in no acute distress, denies shortness of breath or pain. Right pleural chest tube was discontinued without incident. Will repeat chest x-ray in one hour. If stable will discharge to home this afternoon. Continue current medication regimen. The patient is to continue using incentive spirometry. He should follow-up next week in the pulmonology office to receive his path results. Our contact information was provided should he have any questions. Time with Patient: Greater than 30
--- NOTE | 2021-02-21 11:41 | XR ---
EXAMINATION TYPE: XR chest 2V DATE OF EXAM: 02/21/2021 COMPARISON: 02/21/2021 earlier exam INDICATION: Pneumothorax postbiopsy TECHNIQUE: Frontal and lateral views of the chest are obtained. FINDINGS: The heart size is normal. The pulmonary vasculature is normal. There is a small right pleural fluid collection. Bibasilar infiltrates are present greater on the rig ht. The right-sided chest tube is been removed. The right apical pneumothorax has enlarged.. IMPRESSION: 1. Small right apical pneumothorax has enlarged post chest tube removal. 2. Bibasilar infiltrates greater on the right. 3. Small right pleural fluid collection A Red level critical message alert has been initiated for Feli Kramer via the [employer] Results System on 02/21/2021 11:38 AM. This message alert has been sent to Feli Kramer via the prefe rences provided by the clinician for the receipt of Radiology Critical Findings. Message ID [id number].
[2021-02-21 11:52] VITALS: BP 103/62; PULSE 74; TEMP 98.1
--- NOTE | 2021-02-21 13:25 | P.DS ---
Providers Date of admission: 02/20/21 05:50 Expected date of discharge: 02/21/21 Attending physician: Da Alexis Primary care physician: [facility] Course: FINAL DIAGNOSIS: Bilateral pulmonary interstitial infiltrates PRINCIPAL PROCEDURE: Right thoracoscopic lung biopsy HISTORY OF PRESENT ILLNESS: This is a 65-year-old gentleman who follows on an outpatient basis. Dr. Perez. 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 He was seen by Dr. Perez in December and ordered to have pulmonology function testing and CT scan for suspected interstitial lung disease. PFTs demonstrated decreased lung volumes and markedly decreased DLCO consistent with interstitial lung disease of a fairly advanced nature. CT scan demonstrated bilateral pulmonary subpleural interstitial infiltrates which were worse in the lower lobes than the upper lobes and somewhat more pronounced on the right side than the left. There was mild mediastinal adenopathy with maximal 1.3 cm node in the pretracheal region, this lymph node had a translucent center and benign appearance. The patient was referred to Dr. Alexis from cardiothoracic surgery. He was recommended to undergo thoracoscopic lung biopsy. The usual perioperative course was discussed in detail with the patient, all risks and benefits were explained, all questions were answered, and consent was obtained to proceed with surgery. The patient was scheduled for surgery at the earliest possible date. HOSPITAL COURSE: The patient was brought to the hospital on 02/20/2021, taken to the preoperative area, prepared in the usual fashion, and subsequently taken to the operating room where Dr. Alexis performed a right thoracoscopic lung biopsy. Upon completion of surgery the patient was extubated and taken to the recovery room in stable condition. He was eventually admitted to [address] [place] [address] cardiac stepdown unit for further monitoring. There is no air leak in his right pleural chest tube the night of surgery and it was placed to waterseal. The following morning chest x-ray was reviewed and was felt to be stable. There continued to be no air leak in his pleural chest tube and it was discontinued without incident. His oxygen was titrated down, he was tolerating oral diet, his pain was controlled, and he was ready to be discharged to home on postoperative day #1. He received written and verbal instruction regarding his medications, activity restrictions, signs and symptoms requiring physician notification, and follow-up appointments. COMPLICATIONS: The patient experienced no postoperative complications. Patient Condition at Discharge: Stable Plan - Discharge Summary Discharge Rx Participant: No New Discharge Prescriptions: Continue Clotrimazole/Betameth Cream [Lotrisone] 1 applic TOPICAL DAILY PRN PRN Reason: Rash Acetaminophen [Tylenol Extra Strength] 500 mg PO DIRECTED PRN PRN Reason: Pain Cholecalciferol (Vitamin D3) [Vitamin D3 (5000 Iu)] 125 mcg PO DAILY Ascorbic Acid [Vitamin C] 500 mg PO DAILY Discharge Medication List Clotrimazole/Betameth Cream [Lotrisone] 1 applic TOPICAL DAILY PRN 02/19/17 [History] Acetaminophen [Tylenol Extra Strength] 500 mg PO DIRECTED PRN 02/13/21 [History] Ascorbic Acid [Vitamin C] 500 mg PO DAILY 02/13/21 [History] Cholecalciferol (Vitamin D3) [Vitamin D3 (5000 Iu)] 125 mcg PO DAILY 02/13/21 [History] Follow up Appointment(s)/Referral(s): Linn Altman MD [Primary Care Provider] - As Needed Wendy Quevedo NPC [Nurse Practitioner] - 02/28/21 3:30 pm Patient Instructions/Handouts: *Surgery [facility] - Scopalamine Patch Instructions Activity/Diet/Wound Care/Special Instructions: DISCHARGE INSTRUCTIONS: 1. No driving for 2 weeks, or until physician gives their ok. 2. No lifting, pushing, or pulling more than 10 pounds for 2 weeks. The physician will advise of any restriction changes. 3. Continue pain control per as needed orders. Alternate acetaminophen (Tylenol) and ibuprofen (Motrin/Advil) for pain. 4. Continue with incentive spirometry and splinting until otherwise directed by the physician. 5. Leave chest tube dressing for 48 hours. After that, remove all dressings and shower daily. 6. Routine incision care. No powders, lotions, ointments on incisions. 7. Please call surgeon/TILE MACHINE OPERATOR for temp greater than 101 F or purulent drainage from incisions. For any questions or concerns please call nurse practitioner Feli Kramer at [phone] Discharge Disposition: HOME SELF-CARE
== END 2021-02-21 13:09 | disposition home or self-care (01) | DRG 168 ==
LOC: 2ORMAIN 02-20 05:50 → 3SCARD 02-20 14:58
PROVIDERS: ADMIT Thoracic Surgery (Cardiothoracic Vascular Surgery); ATTEND Thoracic Surgery (Cardiothoracic Vascular Surgery)
PROC: 0BBF4ZX Excision of Right Lower Lung Lobe, Percutaneous Endoscopic Approach, Diagnostic (ICD-10-PCS; principal; 2021-02-20 07:30)
PROC: 0BBN4ZX Excision of Right Pleura, Percutaneous Endoscopic Approach, Diagnostic (ICD-10-PCS; principal; 2021-02-20 07:30)
PROC: 0BBC4ZX Excision of Right Upper Lung Lobe, Percutaneous Endoscopic Approach, Diagnostic (ICD-10-PCS; principal; 2021-02-20 07:30)
DX: J84.9 Interstitial pulmonary disease, unspecified (principal); Z88.1 Allergy status to other antibiotic agents; R59.9 Enlarged lymph nodes, unspecified
CPT/HCPCS: 64999; 71045; 71046; 76942; 80048; 85025; 86850; 86900; 86901; 87070; 87075; 87102; 87116; 87205; 87206; 88305; 88307; 94640

== ENCOUNTER → 2021-05-31 | Outpatient (CLI) | payer OTHER ==
--- NOTE | 2021-05-31 14:46 | MR ---
EXAMINATION TYPE: MR sacroiliac joints wo con DATE OF EXAM: 05/31/2021 COMPARISON: None HISTORY: Ankylosing spondylitis Multiplanar multiecho imaging of the sacrum with no contrast. Segments appear to have fairly normal alignment. The sacroiliac joint spaces are maintained. There is no evidence of any bone edema at the sacroiliac joints. There are no erosions identified. There is n o evidence of presacral mass. There is no evidence of free fluid in the pelvis. IMPRESSION: Exam fails to show evidence of ankylosing spondylitis involving the sacroiliac joints.
== END | disposition home or self-care (01) ==
LOC: RADMRIMAIN 09:46
PROVIDERS: ATTEND Internal Medicine Rheumatology
DX: M54.9 Dorsalgia, unspecified (principal)
CPT/HCPCS: 72195

== ENCOUNTER 2021-08-09 10:57 | Inpatient (IN) | payer OTHER ==
--- NOTE | 2021-08-09 11:35 | ED ---
General Adult HPI - General Chief complaint: Skin/Abscess/Foreign Body Stated complaint: rash on back side Time Seen by Provider: 08/09/21 11:12 Source: patient Mode of arrival: ambulatory Limitations: no limitations - History of Present Illness Initial comments: Dictation was produced using [employer] dictation software. please excuse any grammatical, word or spelling errors. Chief Complaint: 66-year-old male presents with buttocks rash History of Present Illness: he is 66-year-old male. A year ago he had an abnormal x-ray that ultimately led to him being referred to retail cosmetics sales counter manager. He had biopsies performed. There is concern of interstitial pneumonia. Patient had a follow-up appointment last week with retail cosmetics sales counter manager. There was some sort of concern that patient's clinical presentation could be secondary to rheumatoid lung disease. He is given referral to elementary spanish teacher. In the meantime retail cosmetics sales counter manager prescribed patient Mycophenolate motefil. Patient started this medication Wednesday of last week. Shortly after patient began developing a rash that patient's girlfriend the bedside described as what appeared to look like little pimples. Rash got worse and started draining. There was a foul smell to it. He called retail cosmetics sales counter manager and was told to stop taking this medicine. He followed up at the urgent care and was prescribed Keflex discharge. Patient states that his rash is getting worse is unable to bear any weight on his buttocks. He does have chills but denies any fever or other constitutional symptoms. The ROS documented in this emergency department record has been reviewed and confirmed by me. Those systems with pertinent positive or negative responses have been documented in the HPI. All other systems are other negative and/or noncontributory. PHYSICAL EXAM: General Impression: Alert and oriented x3, not in acute distress HEENT: Normocephalic atraumatic, extra-ocular movements intact, pupils equal and reactive to light bilaterally, mucous membranes moist. Cardiovascular: Heart regular rate and rhythm Chest: Able to complete full sentences, no retractions, no tachypnea Abdomen: abdomen soft, non-tender, non-distended, no organomegaly Musculoskeletal: Pulses present and equal in all extremities, no peripheral edema Motor: no focal deficits noted Neurological: CN II-XII grossly intact, no focal motor or sensory deficits noted Skin: Malodorous erythematous pustular rash with surrounding erythema, it is tender to palpation, there does appear to be tense bullae. It is malodorous. Negative Mikulski sign Psych: Normal affect and mood ED course: 66-year-old male presents to the emergency department for worsening rash. Vital Signs upon arrival are within acceptable limits. Laboratory evaluation obtained. CBC, metabolic panel within acceptable limits. CRP is slightly elevated at 3.3. Urinalysis negative. No evidence of nephropathy. Given patient's degree of worsening symptoms patient will be admitted with infectious disease consult. Case discussed with Dr. Calixto who was agreeable with patient's care. Patient treated with acyclovir and vancomycin for concerns of viral versus bacterial etiology. - Related Data Home Medications Medication Instructions Recorded Confirmed Clotrimazole/Betameth Cream 1 applic TOPICAL DAILY PRN 02/19/17 02/13/21 [Lotrisone] Acetaminophen [Tylenol Extra 500 mg PO DIRECTED PRN 02/13/21 02/13/21 Strength] Ascorbic Acid [Vitamin C] 500 mg PO DAILY 02/13/21 02/13/21 Cholecalciferol (Vitamin D3) 125 mcg PO DAILY 02/13/21 02/13/21 [Vitamin D3 (5000 Iu)] Allergies Allergy/AdvReac Type Severity Reaction Status Date / Time bacitracin AdvReac Unknown Verified 08/09/21 10:59 [From Neosporin ([id number])] neomycin AdvReac Unknown Verified 08/09/21 10:59 [From Neosporin ([id number])] polymyxin B AdvReac Unknown Verified 08/09/21 10:59 [From Neosporin ([id number])] Review of Systems ROS Statement: Those systems with pertinent positive or pertinent negative responses have been documented in the HPI. ROS Other: All systems not noted in ROS Statement are negative. Past Medical History Past Medical History: Skin Disorder Additional Past Medical History / Comment(s): productive cough for past 8 yrs, dry skin on hands, elevated cholesterol-no rx, tinnitus History of Any Multi-Drug Resistant Organisms: None Reported Additional Past Surgical History / Comment(s): left hand plast surgery after inj ury Past Anesthesia/Blood Transfusion Reactions: Motion Sickness Past Psychological History: Anxiety Smoking Status: Never smoker Past Alcohol Use History: Occasional Past Drug Use History: None Reported - Past Family History Mother Family Medical History: Cancer Additional Family Medical History / Comment(s): skin cancer General Exam Limitations: no limitations Course Vital Signs 08/09/21 08/09/21 10:59 12:26 Temperature 98.2 F 98.8 F Pulse Rate 96 88 Respiratory 18 18 Rate Blood Pressure 106/73 110/77 O2 Sat by Pulse 97 95 Oximetry Medical Decision Making - Lab Data Result diagrams: 08/09/21 13:01 08/09/21 13:01 Lab Results 08/09/21 08/09/21 08/09/21 Range/Units 13:01 13:01 13:01 WBC 7.2 (3.8-10.6) k/uL RBC 5.07 (4.30-5.90) m/uL Hgb 16.0 (13.0-17.5) gm/dL Hct 48.0 (39.0-53.0) % MCV 94.7 (80.0-100.0) fL MCH 31.6 (25.0-35.0) pg MCHC 33.4 (31.0-37.0) g/dL RDW 12.7 (11.5-15.5) % Plt Count 193 (150-450) k/uL MPV 7.5 Neutrophils % 68 % Lymphocytes % 20 % Monocytes % 8 % Eosinophils % 0 % Basophils % 1 % Neutrophils # 4.8 (1.3-7.7) k/uL Lymphocytes # 1.4 (1.0-4.8) k/uL Monocytes # 0.6 (0-1.0) k/uL Eosinophils # 0.0 (0-0.7) k/uL Basophils # 0.1 (0-0.2) k/uL Sodium 134 L (137-145) mmol/L Potassium 4.5 (3.5-5.1) mmol/L Chloride 100 (98-107) mmol/L Carbon Dioxide 25 (22-30) mmol/L Anion Gap 9 mmol/L BUN 20 (9-20) mg/dL Creatinine 1.05 (0.66-1.25) mg/dL Est GFR (CKD-EPI)AfAm 87 (>60 ml/min/1.73 sqM) Est GFR (CKD-EPI)NonAf 75 (>60 ml/min/1.73 sqM) Glucose 96 (74-99) mg/dL Calcium 9.0 (8.4-10.2) mg/dL C-Reactive Protein 3.3 H (<1.0) mg/dL Urine Color Yellow Urine Appearance Clear (Clear) Urine pH 6.5 (5.0-8.0) Ur Specific [place] 1.017 (1.001-1.035) Urine Protein Trace H (Negative) Urine Glucose (UA) Negative (Negative) Urine Ketones Negative (Negative) Urine Blood Negative (Negative) Urine Nitrite Negative (Negative) Urine Bilirubin Negative (Negative) Urine Urobilinogen <2.0 (<2.0) mg/dL Ur Leukocyte Esterase Negative (Negative) Disposition Clinical Impression: Cellulitis Disposition: ADMITTED IP TO THIS HOSP Condition: Fair Referrals: Linn Altman MD [Primary Care Provider] - 1-2 days
[2021-08-09 13:21] LABS: Basophils # (A) 0.1 k/uL (0-0.2); Basophils % (A) 1 %; Eosinophils % (A) 0 %; Lymphocytes # (A) 1.4 k/uL (1.0-4.8); Lymphocytes % (A) 20 %; MCH 31.6 pg (25.0-35.0); MCHC 33.4 g/dL (31.0-37.0); MCV 94.7 fL (80.0-100.0); Mean Platelet Volume 7.5; Monocytes # (A) 0.6 k/uL (0-1.0); Monocytes % (A) 8 %; Neutrophils # (A) 4.8 k/uL (1.3-7.7); Neutrophils % (A) 68 %; Platelet Count 193 k/uL (150-450); RBC 5.07 m/uL (4.30-5.90); RDW 12.7 % (11.5-15.5); WBC 7.2 k/uL (3.8-10.6)
[2021-08-09 13:23] LABS: Appearance,Urine Clear (Clear); Bilirubin,Urine Negative (Negative); Blood,Urine Negative (Negative); Color,Urine Yellow; Glucose,Urine (UA) Negative (Negative); Ketones,Urine Negative (Negative); Leukocyte Esterase,Urine Negative (Negative); Nitrite,Urine Negative (Negative); PH, Urine 6.5 (5.0-8.0); Protein,Urine Trace (Negative); Specific Gravity,Urine 1.017 (1.001-1.035); Urobilinogen,Urine <2.0 mg/dL (<2.0)
[2021-08-09] MEDS ORDERED: cefTRIAXone IN SWFI 1,000 MG/10 ML SYRINGE IVP STA (13:28)
[2021-08-09] MEDS ORDERED: VANCOMYCIN IV PER PHARMACY 1 EACH MISC MISCELLANE PRN (13:29)
[2021-08-09] MEDS ORDERED: ACYCLOVIR 400 MG/10 ML CUP PO SCH (13:30)
[2021-08-09 13:40] LABS: C Reactive Protein 3.3 mg/dL (<1.0); Potassium 4.5 mmol/L (3.5-5.1)
[2021-08-09] MEDS ORDERED: ACETAMINOPHEN TAB 325 MG TAB PO PRN (13:47)
[2021-08-09] MEDS ORDERED: NALOXONE 0.4 MG/ML 1 ML VIAL IV PRN (13:47)
[2021-08-09] MEDS ORDERED: VANCOMYCIN 1,500 MG in SODIUM CHLORIDE 0.9% 250 ML IVPB STA (13:49)
--- NOTE | 2021-08-09 14:49 | HP ---
HISTORY AND PHYSICAL DATE OF SERVICE: 08/09/2021 CHIEF COMPLAINTS: Skin rash and pain in the perianal area and back. HISTORY OF PRESENT ILLNESS: This 66-year-old gentleman with a past medical history of skin disorder, history of cough for the past 8 years was diagnosed with congestive lung disease by Dr. Perez in the outpatient setting. The patient was evaluated and also had a lung wedge biopsy by Dr. Vicente which showed interstitial fibrosis with chronic inflammation. Dr. Perez saw the patient. Mycophenolate was initiated. Now the patient is complaining of significant lesions in the perianal area as well as the back and some pain, also. There is no history of any fever, rigors or chills. No history of headache, loss of consciousness, seizures. The patient is followed by Dr. Linn Altman in the outpatient setting. PAST MEDICAL HISTORY: History of skin disorder, history of cough, interstitial lung disease recently diagnosed, social anxiety. HOME MEDICATIONS: Home medications are vitamin D3, Keflex and vitamin C. ALLERGIES: BACITRACIN, NEOMYCIN, POLYMYXIN B. FAMILY HISTORY: History of skin cancer in the family. SOCIAL HISTORY: No history of smoking. Occasional alcohol intake. REVIEW OF SYSTEMS: ENT: No diminished hearing. No diminished vision. CARDIOVASCULAR SYSTEM: No angina, palpitations. RESPIRATORY SYSTEM: No cough, hemoptysis. GI: No nausea, vomiting, diarrhea. : No dysuria. NERVOUS SYSTEM: No numbness, weakness. ALLERGY/IMMUNOLOGY: No asthma or hay fever. MUSCULOSKELETAL: As mentioned earlier. HEMATOLOGY/ONCOLOGY: No history of anemia. ENDOCRINE: No history of diabetes or hypothyroidism. CONSTITUTIONAL: As mentioned earlier. DERMATOLOGY: As mentioned earlier. RHEUMATOLOGY: Negative. PSYCHIATRY: As mentioned earlier. PHYSICAL EXAMINATION: Patient alert and oriented x3. Pulse 88, blood pressure 110/77, respiration 18, temperature 98.8, pulse ox 94% on room air. HEENT: Conjunctivae normal. NECK: No jugular venous distention. CARDIOVASCULAR: S1, S2 muffled. RESPIRATION: Breath sounds diminished at the bases. A few scattered rhonchi and crackles in the bases. ABDOMEN: Soft, nontender. LEGS: No edema. No swelling. NERVOUS SYSTEM: No focal deficit. JOINTS: No active deforming arthropathy. EXAMINATION OF THE SKIN: Significant papular eruptions around the perianal area as well as in the back and sacral area also. LABS: CBC within normal limits. Sodium 134. C-reactive protein is 3.3. ASSESSMENT: 1. Diffuse skin lesions, possible acute herpetic eruption or cellulitis. 2. Elevated CRP. 3. Hyponatremia. 4. Recently diagnosed usual interstitial pneumonia. 5. History of productive cough. 6. History of skin lesion. 7. History of left hand surgery. 8. History of anxiety. 9. History of motion sickness. 10.FULL CODE. RECOMMENDATIONS AND DISCUSSION: In this 66-year-old gentleman who presented with multiple complex medical issues, we will follow the patient closely. Recommend continuing the current medications. I recommend initiating broad-spectrum IV antibiotics and acyclovir also. Infectious disease evaluation. Will send for herpes cultures. Guarded prognosis because of multiple complex medical issues. Further recommendations to follow. A copy of this dictation is being forwarded to Dr. Linn Altman, who is the primary physician. MMYOANL / LYN: [id number] / MTDD
[2021-08-09] MEDS: MORPHINE SULFATE 4 MG/ML SYRINGE IV PRN (17:52)
[2021-08-09] MEDS: ACYCLOVIR SODIUM 1,000 MG in SODIUM CHLORIDE 0.9% 250 ML IVPB SCH ×2 (18:19→23:54)
[2021-08-09] MEDS: SODIUM CHLORIDE 0.9% 1,000 ML IV SCH (23:54)
[2021-08-10] MEDS: VANCOMYCIN 1,500 MG in SODIUM CHLORIDE 0.9% 250 ML IVPB SCH ×2 (01:00→13:09)
[2021-08-10] MEDS: CHOLECALCIFEROL 25 MCG (1000 IU) TABLET PO SCH (07:47)
[2021-08-10] MEDS: ASCORBIC ACID 500 MG TAB PO SCH (07:47)
[2021-08-10] MEDS: ACYCLOVIR SODIUM 1,000 MG in SODIUM CHLORIDE 0.9% 250 ML IVPB SCH ×2 (07:47→17:23)
[2021-08-10] MEDS: MORPHINE SULFATE 4 MG/ML SYRINGE IV PRN (07:52)
[2021-08-10 12:13] LABS: Basophils # (A) 0.04 X 10*3/uL (0.00-0.10); Basophils % (A) 0.5 %; Eosinophils # (A) 0.02 X 10*3/uL (0.04-0.35); Eosinophils % (A) 0.3 %; HCT 46.5 % (39.6-50.0); HGB 15.4 g/dL (13.0-17.0); Lymphocytes # (A) 2.59 X 10*3/uL (0.90-5.00); Lymphocytes % (A) 34.7 %; MCH 31.4 pg (27.0-32.0); MCHC 33.1 g/dL (32.0-37.0); MCV 94.9 fL (80.0-97.0); Monocytes # (A) 0.88 X 10*3/uL (0.20-1.00); Monocytes % (A) 11.8 %; Neutrophils # (A) 3.92 X 10*3/uL (1.80-7.70); Neutrophils % (A) 52.6 %; Platelet Count 206 X 10*3/uL (140-440); RDW 12.9 % (11.5-14.5); WBC 7.46 X 10*3/uL (4.50-10.00)
[2021-08-10 12:35] LABS: African American GFR (CKD) 73.6 (60.0-200.0); Anion Gap 1.6 mmol/L (4.00-12.00); Calcium 8.8 mg/dL (8.7-10.3); Carbon Dioxide 32.4 mmol/L (21.6-31.8); Non-African American GFR(CKD) 63.5 (60.0-200.0); Potassium 4.2 mmol/L (3.5-5.5)
[2021-08-10] MEDS ORDERED: HYDROmorphone 0.5 MG/0.5 ML SYRINGE IVP PRN (12:42)
[2021-08-10] MEDS: SODIUM CHLORIDE 0.9% 1,000 ML IV SCH (15:43)
[2021-08-10] MEDS ORDERED: ALPRAZolam 0.5 MG TAB PO PRN (18:30)
--- NOTE | 2021-08-10 19:21 | XR ---
EXAMINATION TYPE: XR chest 1V portable DATE OF EXAM: 08/10/2021 COMPARISON: 02/21/2021 HISTORY: Short of breath TECHNIQUE: FINDINGS: Heart is normal. There is no heart failure. There is some blunting of the right costophreni c angle. There are no hilar masses. IMPRESSION: There is pleural reaction and fluid and atelectasis right lung base which is improved com pared to old exam. No heart failure.
--- NOTE | 2021-08-10 20:59 | PN ---
PROGRESS NOTE DATE OF SERVICE: 08/10/2021 This 66-year-old gentleman admitted with significant skin lesions also had features of sepsis. The patient was recently started on mycophenolate for interstitial lung disease. The initial blood cultures are negative at this time. Infectious Disease following the patient closely. No chest pain. No palpitations. No fever. PAST MEDICAL HISTORY: Reviewed. REVIEW OF SYSTEMS: Cardiovascular: S1, S2. Respiration as mentioned earlier. GI as mentioned earlier. : No dysuria. Nervous system: No numbness. No weakness. CURRENT MEDICATIONS: Reviewed and include: Tylenol, Acyclovir IV, otherwise, Dilaudid, vancomycin. PHYSICAL EXAMINATION: Patient is alert, oriented x3. Pulse is 78. Blood pressure 122/74. Respirations 18. Temperature 97.6, T-max 100.8, pulse ox 94% on room air. HEENT: Conjunctivae normal. Neck: No JVD. Cardiovascular: S1, S2 muffled. Respiratory: Breath sounds diminished in the bases. No rhonchi. No crackles. Abdomen: Soft. Nontender. Legs are no edema. No swelling. Nervous system: No focal deficits. Skin: Significant skin lesions around the perianal area and lower back and also on the scalp present. LAB: WBC 7.46 and sodium 130, potassium 4.2. ASSESSMENT: 1. Acute severe skin lesions, possibly herpetic lesions or cellulitis with sepsis present on admission. 2. Elevated CRP. 3. Hyponatremia. 4. Recently diagnosed interstitial pneumonia. 5. History of a productive cough. 6. History of skin lesions. 7. History of left hand surgery. 8. History of anxiety. 9. History of motion sickness. 10.FULL CODE. RECOMMENDATIONS AND DISCUSSION: I recommend to continue current medications, management and symptomatic treatment. Continue the broad-spectrum IV antibiotics. I would recommend repeat cultures. The patient had features of sepsis. The patient not feeling well. The patient is tired. The patient has shaking chills at this time. We will continue to monitor. Infectious Disease consultation has been sought. Otherwise, continue the rest of medications. DVT prophylaxis. See orders for details. I would also recommend a chest x-ray. Further recommendations to follow. Local cultures have been recommended. MMODL / IJN: [id number] /
[2021-08-11] MEDS: ASCORBIC ACID 500 MG TAB PO SCH (07:54)
[2021-08-11] MEDS: ACYCLOVIR SODIUM 1,000 MG in SODIUM CHLORIDE 0.9% 250 ML IVPB SCH ×4 (07:54→15:25)
[2021-08-11] MEDS: CHOLECALCIFEROL 25 MCG (1000 IU) TABLET PO SCH (07:54)
--- NOTE | 2021-08-11 08:32 | P.CONS ---
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 suspicious for rheumatoid lung disease patient noticed the rash started as a small vesicles that has asked involving the left gluteal area and some extension to his penis patient complaining of burning pain to the area intensity 6-7 out of 10 no radiation denies having any foul-smelling drainage patient was evaluated at an urgent care and has been started on Keflex however the patient did not have any improvement other worsening for the patient presented to [facility] ER on presentation to the hospital the patient did have a fever of 103.1 F patient did have a normal white count in the urine was negative patient has been started on acyclovir and vancomycin infectious disease was consulted for further management of antibiotic therapy Review of system: CONSTITUTIONAL: Positive for weakness along with the fever. EYES: No complaint. ENT: No complaint. RESPIRATORY: No complaint. CARDIOVASCULAR: No complaint. GENITOURINARY: No complaint. GASTROINTESTINAL: No complaint. MUSCULOSKELETAL: No complaint. INTEGUMENTARY: As per history of present illness. PSYCHOLOGIC: No complaint. ENDOCRINE: No complaint. NEUROLOGIC: No complaint. Past medical history : Reviewed, documented below Past surgical history : Reviewed, documented below Social history: Reviewed, documented below Medications: Reviewed, as documented below EXAMINATION: Vital sigans= Reviewed and documented below GENERAL DESCRIPTION: Middle-aged male lying in bed, no distress. No tachypnea or accessory muscle of respiration use. HEENT: Shows Pallor , no scleral icterus. Oral mucous membrane is dry. NECK: Trachea central, no thyromegaly. LUNGS: Unlabored breathing. Clear to auscultation anteriorly. No wheeze or crackle. HEART: S1, S2, regular rate and rhythm. ABDOMEN: Soft, no tenderness , guarding or rigidity EXTREMITIES: No edema of feet. SKIN: No rash, no masses palpable. Patient did have a vesicular rash involving the left gluteal area with extension to the penile shaft with surrounding swelling and redness NEUROLOGICAL: The patient is awake, alert, oriented x3, mood and affect normal. LABS AND RADIOLOGY: Reviewed results see below Assessment : Patient presented to hospital with a vesicular rash to the left gluteal area with some extension to the penile shaft I clinical suspicion for zoster involving the S3 dermatome and concern for secondary cellulitis that has failed to respond to the outpatient oral Keflex therapy Plan: 1-acyclovir 10 mg/kg every 8 hour 2-vancomycin pharmacy to dose with a target trough of 15 while watching kidney function and Vanco trough closely. 3-gentle IV fluid We will follow on clinical condition and cultures to further adjust medication if needed Thank you for this consultation we will follow the patient along with you Past Medical History Past Medical History: Respiratory Disorder, Skin Disorder Additional Past Medical History / Comment(s): productive cough for past 8 yrs, dry skin on hands, elevated cholesterol-no rx, tinnitus History of Any Multi-Drug Resistant Organisms: None Reported Additional Past Surgical History / Comment(s): left hand plast surgery after injury. lung biopsy Past Anesthesia/Blood Transfusion Reactions: Motion Sickness Past Psychological History: Anxiety Additional Psychological History / Comment(s): "social anxiety" Smoking Status: Never smoker Past Alcohol Use History: Occasional Past Drug Use History: None Reported - Past Family History Mother Family Medical History: Cancer Additional Family Medical History / Comment(s): skin cancer Medications and Allergies Home Medications Medication Instructions Recorded Confirmed Type Ascorbic Acid [Vitamin C] 500 mg PO DAILY 02/13/21 08/09/21 History Cholecalciferol (Vitamin D3) 125 mcg PO DAILY 02/13/21 08/09/21 History [Vitamin D3 (5000 Iu)] Cephalexin [Keflex] 500 mg PO QID 08/09/21 08/09/21 History Allergies Allergy/AdvReac Type Severity Reaction Status Date / Time bacitracin AdvReac Unknown Verified 08/09/21 14:01 [From Neosporin ([id number])] neomycin AdvReac Unknown Verified 08/09/21 14:01 [From Neosporin ([id number])] polymyxin B AdvReac Unknown Verified 08/09/21 14:01 [From Neosporin ([id number])] Physical Exam Vitals: Vital Signs Temp Pulse Resp BP Pulse Ox 08/10/21 14:00 97.6 F 78 18 122/74 95 08/10/21 07:38 98.4 F 63 18 94/54 96 08/10/21 06:04 99.1 F 08/10/21 02:00 101.8 F H 77 16 90/47 93 L 08/09/21 22:16 98.5 F 08/09/21 20:00 103.1 F H 74 16 110/67 94 L Intake and Output 08/09/21 08/10/21 08/10/21 22:59 06:59 14:59 Other: # Voids 0 Results CBC & Chem 7: 08/10/21 07:12 08/10/21 07:12 Labs: Abnormal Lab Results - Last 24 Hours (Table) 08/10/21 08/10/21 Range/Units 07:12 07:12 Eosinophils # 0.02 L (0.04-0.35) X 10*3/uL Carbon Dioxide 32.4 H (21.6-31.8) mmol/L Anion Gap 1.60 L (4.00-12.00) mmol/L Microbiology - Last 24 Hours (Table) 08/09/21 13:01 Anaerobic Culture - Preliminary Buttock 08/09/21 13:01 Wound Culture - Preliminary Buttock
[2021-08-11] MEDS ORDERED: VANCOMYCIN TROUGH DUE 1 EACH MISC MISCELLANE ONE (11:00)
[2021-08-11 11:21] LABS: African American GFR (CKD) 89 (>60 ml/min/1.73 sqM); Anion Gap 5 mmol/L; Blood Urea Nitrogen 14 mg/dL (9-20); Calcium 8.1 mg/dL (8.4-10.2); Carbon Dioxide 28 mmol/L (22-30); Chloride 102 mmol/L (98-107); Glucose 92 mg/dL (74-99); Non-African American GFR(CKD) 77 (>60 ml/min/1.73 sqM); Potassium 4.5 mmol/L (3.5-5.1); Sodium 135 mmol/L (137-145)
[2021-08-11 11:43] LABS: HCT 42.2 % (39.6-50.0); HGB 14.1 g/dL (13.0-17.0); MCH 31.3 pg (27.0-32.0); MCHC 33.4 g/dL (32.0-37.0); MCV 93.8 fL (80.0-97.0); Mean Platelet Volume 10.1 fL (9.5-12.2); Platelet Count 179 X 10*3/uL (140-440); RDW 12.6 % (11.5-14.5); WBC 6.67 X 10*3/uL (4.50-10.00)
[2021-08-11 12:10] LABS: Basophils # (A) 0.03 X 10*3/uL (0.00-0.10); Basophils % (A) 0.4 %; Eosinophils # (A) 0.04 X 10*3/uL (0.04-0.35); Eosinophils % (A) 0.6 %; Lymphocytes # (A) 2.78 X 10*3/uL (0.90-5.00); Lymphocytes % (A) 41.7 %; Monocytes # (A) 0.74 X 10*3/uL (0.20-1.00); Monocytes % (A) 11.1 %; Neutrophils # (A) 3.06 X 10*3/uL (1.80-7.70); Neutrophils % (A) 45.9 %
[2021-08-11] MEDS: VANCOMYCIN 1,500 MG in SODIUM CHLORIDE 0.9% 250 ML IVPB SCH ×3 (12:18)
[2021-08-11] MEDS: SODIUM CHLORIDE 0.9% 1,000 ML IV SCH (12:21)
[2021-08-11 13:58] LABS: HSV I IgG Interp POSITIVE (NEGATIVE); HSV II IgG Interp NEGATIVE (NEGATIVE)
[2021-08-11] MEDS: GABAPENTIN 100 MG CAP PO SCH ×2 (15:25→22:06)
[2021-08-11] MEDS: TAMSULOSIN 0.4 MG CAP.ER.24H PO SCH (15:25)
--- NOTE | 2021-08-11 16:01 | P.PN ---
Subjective Progress Note Date: 08/11/21 This is a pleasant 66-year-old male who was recently admitted with significant skin lesions noted in the sacral area that travels down the right buttock and is being closely monitored. Multiple pustular bullous present with suspected herpes zoster and patient is maintained on acyclovir. Patient was also started on outpatient oral antibiotics and failed outpatient therapy and is maintained on IV vancomycin and infectious disease is following closely. Patient is also having some pain and discomfort and will add Neurontin and closely monitor. Review of systems: Constitutional: No reports of fatigue, fever, or chills Cardiovascular: No reports of chest pain or palpitations Respiratory: reports of shortness of breath he states is chronic and newly diagnosed with interstitial pneumonia in the outpatient setting GI: No reports of nausea, vomiting, or diarrhea : No reports of dysuria , reports some mild retention Neurovascular: No reports of weakness or numbness All medications have been reviewed Active Medications Acetaminophen (Acetaminophen Tab 325 Mg Tab) 650 mg PO Q6HR PRN PRN Reason: Mild Pain or Fever > 100.5 Last Admin: 08/10/21 03:52 Dose: 650 mg Documented by: Alprazolam (Alprazolam 0.5 Mg Tab) 0.5 mg PO TID PRN PRN Reason: Anxiety Last Admin: 08/10/21 19:48 Dose: 0.5 mg Documented by: Ascorbic Acid (Ascorbic Acid 500 Mg Tab) 500 mg PO DAILY [facility] Last Admin: 08/11/21 07:54 Dose: 500 mg Documented by: Cholecalciferol (Cholecalciferol 25 Mcg (1000 Iu) Tablet) 125 mcg PO DAILY [facility] Last Admin: 08/11/21 07:54 Dose: 125 mcg Documented by: Gabapentin (Gabapentin 100 Mg Cap) 100 mg PO TID [facility] Last Admin: 08/11/21 15:25 Dose: 100 mg Documented by: Hydromorphone HCl (Hydromorphone 0.5 Mg/0.5 Ml Syringe) 0.5 mg IVP Q4HR PRN PRN Reason: Moderate to Severe Pain Last Admin: 08/10/21 17:44 Dose: 0.5 mg Documented by: Sodium Chloride (Saline 0.9%) 1,000 mls @ 20 mls/hr IV .Q24H [facility] Last Admin: 08/11/21 12:21 Dose: Not Given Documented by: Acyclovir Sodium 1,000 mg/ (Sodium Chloride) 270 mls @ 270 mls/hr IVPB Q8HR [facility] Last Admin: 08/11/21 15:25 Dose: 270 mls/hr Documented by: Vancomycin HCl 1,500 mg/ (Sodium Chloride) 250 mls @ 125 mls/hr IVPB Q12H [facility] Last Admin: 08/11/21 12:18 Dose: 125 mls/hr Documented by: Naloxone HCl (Naloxone 0.4 Mg/Ml 1 Ml Vial) 0.2 mg IV Q2M PRN PRN Reason: Opioid Reversal Tamsulosin HCl (Tamsulosin 0.4 Mg Cap.Er.24h) 0.4 mg PO PC-BRKFST [facility] Last Admin: 08/11/21 15:25 Dose: 0.4 mg Documented by: Physical exam: Gen: This is a 66-year-old male awake, alert and oriented 3, well-developed, well-nourished. HEENT: Head is atraumatic, normocephalic. Pupils equal, round. Sclerae is anicteric. NECK: Supple. No JVD. No lymphadenopathy. No thyromegaly. LUNGS: Manage breath sounds bilaterally with no wheezing or rhonchi noted. No intercostal retractions. HEART: Regular rate and rhythm. No murmur. ABDOMEN: Soft. Bowel sounds are present. No masses. No tenderness. EXTREMITIES: No pedal edema. No calf tenderness. NEUROLOGICAL: Patient is awake, alert and oriented x3. Cranial nerves 2 through 12 are grossly intact. SKIN: Multiple herpetic lesions with surrounding redness and cellulitis of the lumbar sacral area that travels down the right buttock with a large wound with scabbing noted in the center Assessment: Acute severe skin lesions, herpetic lesions cellulitis of the right buttock with sepsis, present on admission Elevated CRP Acute urinary retention Hyponatremia Recently diagnosed interstitial pneumonia History of productive cough History of anxiety GI prophylaxis DVT prophylaxis Full code Plan: Recommend continue with IV antibiotics in the form of vancomycin along with acyclovir and closely follow along with infectious disease. Continue contact precautions and local wound care. Will await cultures to finalize. Patient has been retaining and will continue with intermittent straight catheterization with post void residuals and is continuing to retain will insert indwelling Pineda catheter. Encouraged oral intake. Will start Flomax and monitor closely. Will repeat a.m. labs and monitor closely. Objective - Vital Signs Vital signs: Vital Signs Temp 98.1 F 08/11/21 07:42 Pulse 64 08/11/21 07:42 Resp 17 08/11/21 07:42 BP 111/70 08/11/21 07:42 Pulse Ox 96 08/11/21 07:42 Intake & Output 08/10/21 08/11/21 08/11/21 18:59 06:59 18:59 Other: # Voids 3 3 - Labs CBC & Chem 7: 08/11/21 06:29 08/11/21 10:41 Labs: Abnormal Lab Results - Last 24 Hours (Table) 08/10/21 08/10/21 Range/Units 07:12 07:12 Eosinophils # 0.02 L (0.04-0.35) X 10*3/uL Carbon Dioxide 32.4 H (21.6-31.8) mmol/L Anion Gap 1.60 L (4.00-12.00) mmol/L Microbiology - Last 24 Hours (Table) 08/09/21 13:01 Gram Stain - Preliminary Buttock Wound Culture - Preliminary 08/09/21 13:01 Anaerobic Culture - Preliminary Buttock
[2021-08-11 17:57] LABS: African American GFR (CKD) 91.8 (60.0-200.0); Anion Gap 10.8 mmol/L (4.00-12.00); Calcium 8.2 mg/dL (8.7-10.3); Carbon Dioxide 25.2 mmol/L (21.6-31.8); Non-African American GFR(CKD) 79.2 (60.0-200.0); Potassium 4.3 mmol/L (3.5-5.5)
[2021-08-12] MEDS: ACYCLOVIR SODIUM 1,000 MG in SODIUM CHLORIDE 0.9% 250 ML IVPB SCH ×4 (00:17→23:27)
[2021-08-12] MEDS: VANCOMYCIN 1,500 MG in SODIUM CHLORIDE 0.9% 250 ML IVPB SCH ×2 (00:17→12:09)
--- NOTE | 2021-08-12 06:14 | PN ---
PROGRESS NOTE DATE OF SERVICE: 08/11/2021. REASON FOR FOLLOWUP: Right zoster with secondary cellulitis. INTERVAL HISTORY: Patient is afebrile. He is breathing comfortably. Patient complaining of pain to his gluteal area. Denies any chest pain, shortness of breath. No cough. No abdominal pain. No diarrhea. PHYSICAL EXAMINATION: Blood pressure 112/72 with a pulse of 74, temperature 98.2. He is 97% on room air. General description is a middle-aged male lying in bed in no distress. Respiratory system: Unlabored breathing, clear to auscultation anteriorly. Heart S1, S2. Regular rate and rhythm. Abdomen soft, no tenderness. Right gluteal area rash minimal decreased intensity. No rash has been noticed. LABS: BUN of 14, creatinine 1.03. Local cultures so far pending. DIAGNOSTIC IMPRESSION AND PLAN: Patient with right S3 dermatome shingles with secondary cellulitis. Patient to continue with acyclovir and vancomycin. Neurontin has been added for postoperative nausea. Continue supportive care. MMODL / IJN: [id number] /
[2021-08-12 07:46] LABS: African American GFR (CKD) >90 (>60 ml/min/1.73 sqM); Non-African American GFR(CKD) 85 (>60 ml/min/1.73 sqM)
[2021-08-12] MEDS: ASCORBIC ACID 500 MG TAB PO SCH (08:32)
[2021-08-12] MEDS: TAMSULOSIN 0.4 MG CAP.ER.24H PO SCH (08:32)
[2021-08-12] MEDS: GABAPENTIN 100 MG CAP PO SCH ×3 (08:32→22:29)
[2021-08-12] MEDS: CHOLECALCIFEROL 25 MCG (1000 IU) TABLET PO SCH (08:32)
--- NOTE | 2021-08-12 14:04 | P.PN ---
Subjective Progress Note Date: 08/12/21 This is a pleasant 66-year-old male who was recently admitted with significant skin lesions noted in the sacral area that travels down the right buttock and is being closely monitored. Multiple pustular bullous present with suspected herpes zoster and patient is maintained on acyclovir. Patient was also started on outpatient oral antibiotics and failed outpatient therapy and is maintained on IV vancomycin and infectious disease is following closely. Patient is also having some pain and discomfort and will add Neurontin and closely monitor. 08/12/2021 Patient is seen and evaluated and follow-up this morning have been having multiple episodes of urinary retention requiring indwelling Pineda catheter and will start Flomax. Will attempt voiding trial tomorrow and if unable to urinate with post void residual monitoring will continue with indwelling Pineda catheter and have patient follow-up outpatient with urology. On vancomycin along with acyclovir with infectious disease following closely. Awaiting wound cultures to finalize of the anaerobes and aerobic wound culture finalized showing rare normal genital piper with no organisms seen. Will discuss with infectious disease about treatment plan moving forward. Patient continues to have discomfort of the right buttock region and will continue with gabapentin and add [place] as needed. Avoid narcotics if possible. Patient states his appetite is fair and has been attempting to eat a little more although not much of an appetite. Patient appears extremely uncomfortable on exam with position changes. Review of systems: Constitutional: No reports of fatigue, fever, or chills Cardiovascular: No reports of chest pain or palpitations Respiratory: reports of shortness of breath he states is chronic and newly diagnosed with interstitial pneumonia in the outpatient setting GI: No reports of nausea, vomiting, or diarrhea : No reports of dysuria , reports some mild retention now requiring indwelling Pineda catheter Neurovascular: No reports of weakness or numbness, reports discomfort with position changes All medications have been reviewed Active Medications Acetaminophen (Acetaminophen Tab 325 Mg Tab) 650 mg PO Q6HR PRN PRN Reason: Mild Pain or Fever > 100.5 Last Admin: 08/10/21 03:52 Dose: 650 mg Documented by: Alprazolam (Alprazolam 0.5 Mg Tab) 0.5 mg PO TID PRN PRN Reason: Anxiety Last Admin: 08/10/21 19:48 Dose: 0.5 mg Documented by: Ascorbic Acid (Ascorbic Acid 500 Mg Tab) 500 mg PO DAILY [facility] Last Admin: 08/12/21 08:32 Dose: 500 mg Documented by: Cholecalciferol (Cholecalciferol 25 Mcg (1000 Iu) Tablet) 125 mcg PO DAILY [facility] Last Admin: 08/12/21 08:32 Dose: 125 mcg Documented by: Gabapentin (Gabapentin 100 Mg Cap) 100 mg PO TID [facility] Last Admin: 08/12/21 08:32 Dose: 100 mg Documented by: Hydromorphone HCl (Hydromorphone 0.5 Mg/0.5 Ml Syringe) 0.5 mg IVP Q4HR PRN PRN Reason: Moderate to Severe Pain Last Admin: 08/10/21 17:44 Dose: 0.5 mg Documented by: Sodium Chloride (Saline 0.9%) 1,000 mls @ 20 mls/hr IV .Q24H [facility] Last Admin: 08/11/21 12:21 Dose: Not Given Documented by: Acyclovir Sodium 1,000 mg/ (Sodium Chloride) 270 mls @ 270 mls/hr IVPB Q8HR [facility] Last Admin: 08/12/21 08:33 Dose: 270 mls/hr Documented by: Vancomycin HCl 1,500 mg/ (Sodium Chloride) 250 mls @ 125 mls/hr IVPB Q12H [facility] Last Admin: 08/12/21 12:09 Dose: 125 mls/hr Documented by: Naloxone HCl (Naloxone 0.4 Mg/Ml 1 Ml Vial) 0.2 mg IV Q2M PRN PRN Reason: Opioid Reversal Tamsulosin HCl (Tamsulosin 0.4 Mg Cap.Er.24h) 0.4 mg PO PC-BRKFST [facility] Last Admin: 08/12/21 08:32 Dose: 0.4 mg Documented by: Physical exam: Gen: This is a 66-year-old male awake, alert and oriented 3, well-developed, well-nourished. HEENT: Head is atraumatic, normocephalic. Pupils equal, round. Sclerae is anicteric. NECK: Supple. No JVD. No lymphadenopathy. No thyromegaly. LUNGS: Diminished breath sounds bilaterally with no wheezing or rhonchi noted. No intercostal retractions. HEART: Regular rate and rhythm. No murmur. ABDOMEN: Soft. Bowel sounds are present. No masses. No tenderness. EXTREMITIES: No pedal edema. No calf tenderness. NEUROLOGICAL: Patient is awake, alert and oriented x3. Cranial nerves 2 through 12 are grossly intact. SKIN: Multiple herpetic lesions with surrounding redness and cellulitis of the lumbar sacral area that travels down the right buttock with a large wound with scabbing noted in the center Assessment: Acute severe skin lesions, herpetic lesions cellulitis of the right buttock with sepsis, present on admission Elevated CRP Acute urinary retention Hyponatremia Recently diagnosed interstitial pneumonia History of productive cough History of anxiety GI prophylaxis DVT prophylaxis Full code Plan: Recommend continue with IV antibiotics in the form of vancomycin along with acyclovir and closely follow along with infectious disease. Continue contact precautions and local wound care. Will await cultures to finalize. Patient has been retaining and requiring indwelling Pineda catheter insertion and have started Flomax. Encouraged oral intake. We'll attempt a trial void tomorrow and if continuing to retain then will have patient follow-up outpatient with urology. Will repeat a.m. labs and monitor closely. Possible discharge in 24- 48 hours. Objective - Vital Signs Vital signs: Vital Signs Temp 98.1 F 08/12/21 07:11 Pulse 60 08/12/21 07:11 Resp 17 08/12/21 07:11 BP 118/74 08/12/21 07:11 Pulse Ox 95 08/12/21 07:11 Intake & Output 08/11/21 08/12/21 08/12/21 18:59 06:59 18:59 Output Total 1400 2475 Balance -1400 -2475 Output: Urine 1400 2475 Straight 1400 500 Other: Voiding Method Toilet Urinal # Voids 3 # Bowel Movements 1 - Labs CBC & Chem 7: 08/11/21 06:29 08/12/21 06:13 Labs: Abnormal Lab Results - Last 24 Hours (Table) 08/10/21 08/11/21 08/11/21 Range/Units 07:11 06:29 10:41 Sodium 135 L (137-145) mmol/L Calcium 8.2 L 8.1 L (8.7-10.3) mg/dL HSV I IgG Interpret POSITIVE A (NEGATIVE) Microbiology - Last 24 Hours (Table) 08/09/21 13:01 Gram Stain - Final Buttock Wound Culture - Final 08/10/21 12:57 Blood Culture - Preliminary Blood No Growth after 24 hours
[2021-08-12] MEDS: KETOROLAC 15 MG/ML 1 ML VIAL IVP SCH ×2 (18:02→23:27)
--- NOTE | 2021-08-12 18:47 | PN ---
PROGRESS NOTE DATE OF SERVICE: 08/12/2021 REASON FOR FOLLOWUP: Right S3 dermatome zoster with secondary cellulitis. INTERVAL HISTORY: The patient is afebrile. The patient is breathing comfortably. The patient denies having any chest pain, shortness of breath, cough, no abdominal pain, or any worsening pain to the right gluteal area. PHYSICAL EXAMINATION: Blood pressure 112/70 with a pulse of 66, temperature 97.6. He is 96% on room air. General description is a middle-aged male lying in bed in no distress. Respiratory system: Unlabored breathing, clear to auscultation anteriorly. Heart S1, S2. Regular rate and rhythm. Abdomen soft. No tenderness. Right gluteal swelling and redness has improved. No new rash was noticed. LABS: Creatinine 0.95. DIAGNOSTIC IMPRESSION AND PLAN: Patient with right gluteal S3 dermatome shingles with secondary cellulitis. Culture has been negative. Patient to continue acyclovir with Valtrex. Short course of oral Keflex and close outpatient followup. MMODL / IJN: [id number] /
[2021-08-12] MEDS: SODIUM CHLORIDE 0.9% 1,000 ML IV SCH (19:10)
[2021-08-13] MEDS: VANCOMYCIN 1,500 MG in SODIUM CHLORIDE 0.9% 250 ML IVPB SCH ×2 (00:42→11:55)
[2021-08-13 02:50] LABS: African American GFR (CKD) >90 (>60 ml/min/1.73 sqM); Non-African American GFR(CKD) 84 (>60 ml/min/1.73 sqM)
[2021-08-13] MEDS: KETOROLAC 15 MG/ML 1 ML VIAL IVP SCH ×2 (05:25→11:55)
[2021-08-13 08:19] VITALS: TEMP 98.2
[2021-08-13] MEDS: ASCORBIC ACID 500 MG TAB PO SCH (08:55)
[2021-08-13] MEDS: GABAPENTIN 100 MG CAP PO SCH (08:55)
[2021-08-13] MEDS: TAMSULOSIN 0.4 MG CAP.ER.24H PO SCH (08:55)
[2021-08-13] MEDS: ACYCLOVIR SODIUM 1,000 MG in SODIUM CHLORIDE 0.9% 250 ML IVPB SCH (08:55)
[2021-08-13] MEDS: CHOLECALCIFEROL 25 MCG (1000 IU) TABLET PO SCH (08:56)
[2021-08-13 15:06] VITALS: BP 122/78; PULSE 61; RESP 18
--- NOTE | 2021-08-13 15:52 | PN ---
PROGRESS NOTE DATE OF SERVICE: 08/13/2021 REASON FOR FOLLOWUP: Right S3 dermatome shingles with secondary cellulitis. INTERVAL HISTORY: The patient is afebrile. The patient is feeling better, breathing comfortably. No chest pain, shortness of breath or cough. No abdominal pain. Overall pain and discomfort to the right gluteal area has decreased. PHYSICAL EXAMINATION: Blood pressure is 118/69, pulse of 57, temperature 98.2. He is 96% on room air. GENERAL DESCRIPTION: General description is a middle-aged male lying in bed in no distress. RESPIRATORY SYSTEM: Unlabored breathing. Clear to auscultation anteriorly. HEART: S1, S2. Regular rate and rhythm. ABDOMEN: Soft. No tenderness. Right gluteal swelling and redness have decreased. DIAGNOSTIC IMPRESSION AND PLAN: Patient with right S3 dermatome shingles with secondary cellulitis. Overall improvement with Acyclovir and vancomycin. Finish therapy with Valtrex, oral Keflex and close outpatient followup. MMODL / IJN: [id number] /
[2021-08-13] MEDS: SODIUM CHLORIDE 0.9% 1,000 ML IV SCH (16:10)
--- NOTE | 2021-08-14 08:19 | P.DS ---
Providers Date of admission: 08/09/21 13:47 Expected date of discharge: 08/13/21 Attending physician: Megan Calixto Consults: 08/09/21 13:47 Consult Physician Routine Consulting Provider: Christiane Avila Consult Reason/Comments: cellulitis Do you want consulting provider notified?: Yes Primary care physician: Linn Altman Hospital Course: Final diagnosis Acute severe skin lesions, herpetic lesions Herpes zoster cellulitis of the right buttock with sepsis, present on admission Elevated CRP Acute urinary retention Hyponatremia Recently diagnosed interstitial pneumonia History of productive cough History of anxiety GI prophylaxis DVT prophylaxis Full code Discharge disposition Patient is being discharged in a stable condition with guarded prognosis to home. Patient will follow-up with Dr. Linn Altman in the outpatient setting upon discharge. Patient is also to follow-up with infectious disease Dr. Avila at the wound center in 1-2 weeks. Patient will continue on Valtrex along with Keflex for the next one week. Patient will also need to follow-up with urology in the outpatient setting in 1 week. Total time taken is greater than 35 minutes. Hospital course. This is a pleasant 66-year-old male who was recently admitted with significant skin lesions noted in the sacral area that travels down the right buttock and is being closely monitored. Multiple pustular bullous present with suspected herpes zoster and patient is maintained on acyclovir. Patient was also started on outpatient oral antibiotics and failed outpatient therapy and is maintained on IV vancomycin and infectious disease is following closely. Patient is also having some pain and discomfort and will add Neurontin and closely monitor. 08/12/2021 Patient is seen and evaluated and follow-up this morning have been having multiple episodes of urinary retention requiring indwelling Pineda catheter and will start Flomax. Will attempt voiding trial tomorrow and if unable to urinate with post void residual monitoring will continue with indwelling Pineda catheter and have patient follow-up outpatient with urology. On vancomycin along with acyclovir with infectious disease following closely. Awaiting wound cultures to finalize of the anaerobes and aerobic wound culture finalized showing rare normal genital piper with no organisms seen. Will discuss with infectious disease about treatment plan moving forward. Patient continues to have discomfort of the right buttock region and will continue with gabapentin and add Clio as needed. Avoid narcotics if possible. Patient states his appetite is fair and has been attempting to eat a little more although not much of an appetite. Patient appears extremely uncomfortable on exam with position changes. 08/13/2021 Patient is seen in follow-up this morning attempted a trial void and removal of indwelling Pineda catheter and patient continued to retain over 200 mL of urine after voiding and states he felt like he wasn't completely emptying his bladder. Patient denies any dysuria or pain with urination. Patient will continue with indwelling Pineda catheter and has been started on Flomax and instructed to follow-up with urology in the outpatient setting in 1 week. Patient was seen and evaluated by infectious disease Dr. Avila recommending continuing Valtrex along with Keflex for the next week to complete the course. Patient will follow-up with infectious disease in the outpatient setting. Currently no reports of chest pain, shortness of breath, or palpitations. Patient is afebrile. No reports of nausea or vomiting and patient is tolerating diet. Patient will be discharged home today. Gen: This is a 66-year-old male awake, alert and oriented 3, well-developed, well-nourished. HEENT: Head is atraumatic, normocephalic. Pupils equal, round. Sclerae is anicteric. NECK: Supple. No JVD. No lymphadenopathy. No thyromegaly. LUNGS: Diminished breath sounds bilaterally with no wheezing or rhonchi noted. No intercostal retractions. HEART: Regular rate and rhythm. No murmur. ABDOMEN: Soft. Bowel sounds are present. No masses. No tenderness. EXTREMITIES: No pedal edema. No calf tenderness. NEUROLOGICAL: Patient is awake, alert and oriented x3. Cranial nerves 2 through 12 are grossly intact. SKIN: Multiple herpetic lesions with surrounding redness and cellulitis of the lumbar sacral area that travels down the right buttock showing some improvement and healing Please refer to medication reconciliation sheet for a list of medications. Patient Condition at Discharge: Stable Plan - Discharge Summary Discharge Rx Participant: No New Discharge Prescriptions: New Tamsulosin [Flomax] 0.4 mg PO PC-BRKFST 30 Days #30 tab Acetaminophen Tab [Tylenol] 650 mg PO Q6HR PRN tab PRN Reason: Mild Pain Or Fever > 100.5 valACYclovir HCL [Valtrex] 1,000 mg PO Q8HR 7 Days #21 tab Gabapentin [Neurontin] 200 mg PO TID #30 cap Ketorolac [Toradol] 10 mg PO Q8H PRN #30 tab PRN Reason: Pain Continue Cholecalciferol (Vitamin D3) [Vitamin D3 (5000 Iu)] 125 mcg PO DAILY Ascorbic Acid [Vitamin C] 500 mg PO DAILY Cephalexin [Keflex] 500 mg PO QID 7 Days #28 cap Discharge Medication List Ascorbic Acid [Vitamin C] 500 mg PO DAILY 02/13/21 [History] Cholecalciferol (Vitamin D3) [Vitamin D3 (5000 Iu)] 125 mcg PO DAILY 02/13/21 [History] Acetaminophen Tab [Tylenol] 650 mg PO Q6HR PRN tab 08/13/21 [Rx] Cephalexin [Keflex] 500 mg PO QID 7 Days #28 cap 08/13/21 [Rx] Gabapentin [Neurontin] 200 mg PO TID #30 cap 08/13/21 [Rx] Ketorolac [Toradol] 10 mg PO Q8H PRN #30 tab 08/13/21 [Rx] Tamsulosin [Flomax] 0.4 mg PO PC-BRKFST 30 Days #30 tab 08/13/21 [Rx] valACYclovir HCL [Valtrex] 1,000 mg PO Q8HR 7 Days #21 tab 08/13/21 [Rx] Follow up Appointment(s)/Referral(s): Negro Gordon MD [STAFF PHYSICIAN] - 08/19/21 2:40 pm Linn Altman MD [Primary Care Provider] - 08/20/21 1:15 pm Christiane Avila MD [STAFF PHYSICIAN] - 08/19/21 1:15 pm Patient Instructions/Handouts: Urinary Retention in Men (GEN), Shingles (DC), Cellulitis (DC), Pineda Catheter Placement and Care (DC), Urinary Leg Bag (GEN) Activity/Diet/Wound Care/Special Instructions: Activity Limited until follow-up Continue taking medications as prescribed until finished Continue current diet Follow-up with primary care provider on discharge Follow-up with infectious disease in the clinic in one week Continue with indwelling Pineda catheter and Flomax and follow-up with urology in 1 week Discharge Disposition: HOME SELF-CARE
[2021-08-14] MEDS ORDERED: VANCOMYCIN TROUGH DUE 1 EACH MISC MISCELLANE ONE (11:00)
== END 2021-08-13 16:19 | disposition home or self-care (01) | DRG 872 ==
LOC: EC 10:57 → 4SSUR 13:47
PROVIDERS: ADMIT Hospitalist; ATTEND Hospitalist
DX: A41.9 Sepsis, unspecified organism (principal); E87.1 Hypo-osmolality and hyponatremia; L03.312 Cellulitis of back [any part except buttock and flank]; L03.317 Cellulitis of buttock; B02.8 Zoster with other complications; J84.112 Idiopathic pulmonary fibrosis; B00.7 Disseminated herpesviral disease; Z20.822 Contact with and (suspected) exposure to COVID-19; B97.89 Other viral agents as the cause of diseases classified elsewhere; B97.7 Papillomavirus as the cause of diseases classified elsewhere; R33.8 Other retention of urine; F40.10 Social phobia, unspecified; L08.0 Pyoderma; E78.00 Pure hypercholesterolemia, unspecified; R05 Cough; R09.89 Other specified symptoms and signs involving the circulatory and respiratory systems; T75.3XXA Motion sickness, initial encounter; X58.XXXA Exposure to other specified factors, initial encounter; Z88.1 Allergy status to other antibiotic agents; Z88.0 Allergy status to penicillin; Z87.01 Personal history of pneumonia (recurrent)
CPT/HCPCS: 36415; 71045; 80048; 80202; 81003; 82565; 85025; 86140; 86695; 86696; 87040; 87070; 87075; 87205; 87635; 96365; 96366; 96368; 99284

== ENCOUNTER → 2022-01-05 | Outpatient (CLI) | payer OTHER ==
--- NOTE | 2022-01-05 09:38 | CT ---
EXAMINATION TYPE: CT chest w con DATE OF EXAM: 01/05/2022 COMPARISON: CT dated 01/01/2021 HISTORY: Interstitial Lung Disease CT DLP: 313.80 mGycm Automated exposure control for dose reduction was used. TECHNIQUE: CT scan of the chest is performed with IV Contrast, patient injected with 100 mL of Isovue 300. FINDINGS: Redemonstration of the previously seen peripheral pulmonary reticulations, mild fibrotic changes and groundglass opacities, most evident seen in the lung bases and slightly more on the right side. Milde r changes are seen at the midlung zones with minimal changes in the upper lung zone. No evidence of h oneycombing or traction bronchiectasis. Minimal interval progression is seen along the posterior aspect of the left upper lobe and the lung b ases since 2020 CT chest. These findings were not appreciated in the lung images of 2017 CT abdomen. Questionable pleural-based calcifications versus surgical suture at the posterior aspect of the lung base as well as the anterior aspect right lung apex. Please correlate with the patient's surgical his tory. No definite discrete nodules identified. Patent trachea and main bronchi. Minimal right pleural fluid , improved compared to the previously seen small right pleural effusion. No left-sided pleural effusi on. No gross cardiomegaly. The pulmonary trunk measures up to 2.6 cm. No pericardial effusion. Stable 12 mm subcarinal lymph node and 13 mm right precarinal retrocaval lym ph node. Other scattered subcentimeter bilateral hilar and mediastinal lymph nodes without interval p rogression. Unremarkable upper abdomen. No aggressive bone lesion. IMPRESSION: Findings are suggestive of interstitial lung disease however the pulmonary changes are nonspecific an d indeterminate for UIP pattern. The pulmonary changes were not appreciated in 2017 CT abdomen and de monstrate minimal interval change since December 2020 CT chest. Recommend clinical correlation, pulmo nology consultation and further workup. Incidental findings as described above.
== END | disposition home or self-care (01) ==
LOC: RADCTMAIN 07:44
PROVIDERS: ATTEND Internal Medicine Critical Care Medicine
DX: J84.9 Interstitial pulmonary disease, unspecified (principal)
CPT/HCPCS: 71260; Q9967

== ENCOUNTER → 2022-12-08 | Outpatient (CLI) | payer MEDICARE ==
--- NOTE | 2022-12-08 11:47 | CT ---
EXAMINATION TYPE: CT chest w con DATE OF EXAM: 12/08/2022 COMPARISON: 01/05/2022 HISTORY: Interstitial pulmonary disease, unspecified. CT DLP: 604 mGycm Automated exposure control for dose reduction was used. CONTRAST: CT scan of the chest is performed with IV Contrast, patient injected with 70 mL of Isovue 300. FINDINGS: LUNGS: No change in bilateral coronary fibrotic change greatest at the lung bases with peripheral ret iculations and scattered groundglass infiltrates. No significant progression is seen by CT. No airspa ce consolidation or pleural effusion. No nodule or mass is evident. MEDIASTINUM: Subcarinal adenopathy measures 1.5 cm versus 1.3 cm previously. Right hilar adenopathy m easures 1.3 cm left hilar adenopathy measures approximately 11 mm. No pericardial effusion is seen. Thoracic aorta is of normal caliber. The heart is not enlarged. UPPER ABDOMEN: No significant abnormality appreciated. OTHER: No additional significant abnormality is seen. IMPRESSION: 1. Nonspecific stable pulmonary interstitial fibrotic change. Correlate clinically and consider trans bronchial biopsy if felt clinically indicated.
== END | disposition home or self-care (01) ==
LOC: RADCTMAIN 09:48
PROVIDERS: ATTEND Internal Medicine Critical Care Medicine
DX: J84.10 Pulmonary fibrosis, unspecified (principal); J84.9 Interstitial pulmonary disease, unspecified
CPT/HCPCS: 82565; 84520; 71260; 36415; Q9967

== ENCOUNTER → 2024-11-27 | Outpatient (CLI) | payer MEDICARE | END | disposition home or self-care (01) | LOC: LABWHC1 13:58 | PROVIDERS: ATTEND Internal Medicine Critical Care Medicine | DX: Z20.822 Contact with and (suspected) exposure to COVID-19 (principal) | CPT/HCPCS: 87636 ==

== ENCOUNTER → 2025-01-16 | Outpatient (CLI) | payer MEDICARE ==
[2025-01-16 09:32] LABS: African American GFR (CKD) >90 (>60 ml/min/1.73 sqM); Blood Urea Nitrogen 19 mg/dL (9-20); Non-African American GFR(CKD) 80 (>60 ml/min/1.73 sqM)
--- NOTE | 2025-01-16 10:16 | CT ---
EXAMINATION TYPE: CT chest w con DATE OF EXAM: 01/16/2025 9:50 AM COMPARISON: 01/18/2024 CLINICAL INDICATION: Male, 69 years old with history of J96.01 ACUTE RESPIRATORY FAILURE WITH HYPOXIA ; PHH, Acute respiratory failure with hypoxia. TECHNIQUE: Multiple axial images were obtained through the chest. Sagittal and coronal reformats were created for review. MIP was performed on a separate workstation. Contrast used:100 ml mL of Isovue 300 with IV Contrast (None if empty) Oral contrast used: (None if empty) CT DLP: 353.0 mGycm, Automated exposure control for dose reduction was used. FINDINGS: LUNGS/ PLEURA: Interstitial lung disease at baseline appears more prominent on today's exam compared to 01/18/2024. No focal consolidation. No honeycombing visualized. There is peripheral and more basilar predominance noted. No focal consolidation, pneumothorax or pleural effusion. AIRWAY: Patent and unremarkable. HEART: Size within normal limits. No significant coronary artery calcifications. MEDIASTINUM: No gross evidence of adenopathy. Stable appearing lymph nodes. VASCULATURE: 4 vessel aortic arch. No evidence for a filling defect within the pulmonary artery vasc ulature. No evidence for dissection. No aneurysm identified. MUSCULOSKELETAL: No acute osseous abnormalities SOFT TISSUES/LYMPH NODES: Unremarkable. LOWER NECK: No significant findings. UPPER ABDOMEN: Stable arterial enhancing lesion in the right hepatic dome. Gallstone within the gallb ladder lumen. IMPRESSION: Progression of interstitial lung disease with increased density on today's exam of the in terstitial lung markings. Correlate for NSIP versus acute atypical pneumonia on chronic interstitial lung disease. [facility], , 01/16/2025 10:13 AM
== END | disposition home or self-care (01) ==
LOC: RADCTMAIN 08:28
PROVIDERS: ATTEND Internal Medicine Critical Care Medicine
DX: J96.01 Acute respiratory failure with hypoxia (principal); J84.9 Interstitial pulmonary disease, unspecified
CPT/HCPCS: 82565; 84520; 71260; 36415; Q9967